=== PATIENT | female | born 1965 | race Caucasian/White ===

== ENCOUNTER 2017-04-17 10:14 | Emergency (ER) | payer OTHER, MEDICAID ==
[2017-04-17 10:20] VITALS: BP 142/62; PULSE 94; RESP 18; TEMP 98; O2SAT 97
[2017-04-17] MEDS ORDERED: predniSONE 20 MG TAB PO ONE (10:29)
[2017-04-17] MEDS ORDERED: IPRATROPIUM/ALBUTEROL 3 ML DEYVIAL IH ONE (10:29)
--- NOTE | 2017-04-17 10:32 | EDPHY ---
H & P Time Seen by Provider: 04/17/17 10:17 HPI/ROS: CHIEF COMPLAINT: Cough and wheezing HISTORY OF PRESENT ILLNESS: Patient has long history of asthma gets worse when she gets bad allergies. Currently it is allergy season and she has bit of a sore throat and itchy eyes and a runny nose along with coughing and wheezing and worsening chest tightness and shortness of breath over the last 3 days. Not helped by her Ventolin inhaler. Currently also using inhaled Flonase and Advair. Does not have fever or hemoptysis or leg swelling. No recent travel or immobilization. Symptoms are moderate and worse with exertion. REVIEW OF SYSTEMS: Eye: no change in vision ENT: Mild sore throat but no lip or tongue swelling. Cardiac: no chest pain or syncope Pulmonary: HPI Abdomen: no vomiting, diarrhea, abdominal pain Musculoskeletal: no back pain Skin: no rash Neuro: no headache Constitutional: no fever : no urinary symptoms A comprehensive 10 point review of systems is otherwise negative aside from elements mentioned in the history of present illness. PAST MEDICAL HISTORY: Includes cardiomyopathy, asthma, depression Social history: Nonsmoker General Appearance: Alert and conversant, cooperative. Eyes: No scleral icterus. ENT, Mouth: Normal mucous membranes. No angioedema, uvula midline and normal. Respiratory: Slight bilateral end-expiratory wheezing, but does speak in full sentences. No focal lung sounds. Cardiovascular: Regular rate and rhythm. Gastrointestinal: Abdomen is soft and non tender. Neurological: Alert and oriented x3. Normally conversant. Face symmetric, normal movement and sensation in all extremities. Skin: Warm and dry, no rashes. No urticaria. Musculoskeletal: No calf tenderness. Psychiatric: Not agitated. Emergency Department course/MDM: Patient presents with symptoms she says are identical to previous asthma exacerbations. Clinically this appears to be the case. DuoNeb and prednisone burst for the next week. Prednisone discussed and consented, she has had it prescribed in the past. I think that CHF or pulmonary embolism or pneumonia are all unlikely. Smoking Status: Never smoked Constitutional: Initial Vital Signs Temperature (C) 36.6 C 04/17/17 10:18 Heart Rate 94 04/17/17 10:18 Respiratory Rate 18 04/17/17 10:18 Blood Pressure 142/62 H 04/17/17 10:18 O2 Sat (%) 97 04/17/17 10:18 O2 Delivery Mode Room Air Allergies/Adverse Reactions: Penicillins Allergy (Unknown, Verified 01/05/15 13:55) Anaphylaxis Home Medications: Medication Instructions Recorded Albuterol [Proventil Inhaler HFA 1 - 2 puffs IH Q4 PRN 08/18/12 (*)] Carvedilol [Coreg (*)] 3.125 mg PO BIDMEAL 08/18/12 Digoxin [Lanoxin 0.125 mg] 0.125 mg PO HS 08/18/12 Gabapentin [Neurontin 100 MG (*)] 100 mg PO DAILY 08/18/12 OXcarbazepine [Trileptal 300mg (*)] 600 mg PO BID 08/18/12 ARIPiprazole [Abilify 10 mg (*)] 10 mg PO HS 03/22/14 Furosemide [Lasix 40 MG (*)] 10 - 40 mg PO DAILY PRN 03/22/14 Methylphenidate HCl 30 mg PO DAILY06 03/22/14 [Methylphenidate LA] buPROPion SR [Wellbutrin 150mg SR 150 mg PO DAILY 03/22/14 (*)] buPROPion XL [Wellbutrin 150mg XL] 450 mg PO DAILY 03/22/14 Enalapril Maleate 02/13/16 predniSONE [prednisone 20mg (RX)] 20 mg PO Q12 #15 tab 04/17/17 MDM/Departure - [facility] Medications Given: Discontinued Medications Albuterol/Ipratropium (Duoneb) 3 ml IH EDNOW ONE Stop: 04/17/17 10:30 Last Admin: 04/17/17 10:42 Dose: 3 ml Prednisone (Prednisone) 60 mg PO EDNOW ONE Stop: 04/17/17 10:30 Last Admin: 04/17/17 10:41 Dose: 60 mg - Depart Disposition: Home, Routine, Self-Care Clinical Impression: Exacerbation of asthma Condition: Good Instructions: Asthma (ED) Prescriptions: predniSONE [prednisone 20mg (RX)] 20 mg PO Q12 #15 tab Referrals: Mari Adrian MD [Primary Care Provider] - As per Instructions
== END 2017-04-17 11:14 | disposition home or self-care (01) ==
LOC: CED 10:14
DX: J45.901 Unspecified asthma with (acute) exacerbation (principal)

== ENCOUNTER 2017-04-22 17:50 | Emergency (ER) | payer OTHER, MEDICAID ==
[2017-04-22] MEDS ORDERED: IPRATROPIUM/ALBUTEROL 3 ML DEYVIAL ONE (18:09)
[2017-04-22] MEDS ORDERED: IPRATROPIUM/ALBUTEROL 3 ML DEYVIAL IH ONE (18:12)
[2017-04-22] MEDS ORDERED: predniSONE 20 MG TAB PO ONE (18:47)
--- NOTE | 2017-04-22 19:03 | EDPHY ---
H & P Time Seen by Provider: 04/22/17 18:10 HPI/ROS: This patient presents with recurrent asthma exacerbations symptoms. She explains that she was seen on April [address] Hyman for asthma exacerbation and started on prednisone 20 mg twice a day. She has been compliant with this treatment plan but reports that she improved for 4 days or so but over the past 2-3 days this had again increase in her wheezing despite frequent use of her albuterol every 2 hours. She has not been using a spacer with her albuterol. She notes no new symptoms besides her seasonal allergies which are typically the trigger for her asthma exacerbations. She states that her current dyspnea is [id number]. ROS: No fevers or chills. HEENT: She complains of onset of thrush in association with Flonase use over the past 2 days and requests nystatin Pulmonary: No pleuritic pain. No significant coughing. No respiratory distress cardiovascular: No heart palpitations. No chest pain. No calf swelling or pain. GI: No nausea vomiting or belly pain. Integumentary: No skin rash 7 point ROS is otherwise negative Smoking Status: Never smoked Physical Exam: Physical Exam Vital signs are normal. General: No acute distress HEENT: Nose: Clear discharge bilaterally. No sinus tenderness to percussion. Ears: External canals and tympanic membranes are clear with no erythema or abnormal findings bilaterally. Oropharynx: No erythema or exudates. No dysphonia. No drooling or stridor. Tongue: Patient has white plaques consistent with oral thrush Eyes: Pupils equal and react to light. Extraocular motions are intact. Neck: Supple with no meningismus. No lymphadenopathy Lungs: Clear to auscultation bilaterally with no rales, rhonchi or wheeze. However, with deep breath or cough she has mild expiratory wheeze.No respiratory distress. Cardiac: Regular rate and rhythm with no murmur gallop or rub. No leg swelling or tenderness. Skin: No rash or pallor. Neuro: Alert with no focal deficits noted. Initial differential diagnosis: URI with asthma, seasonal allergies with asthma exacerbation, doubt bronchitis or pneumonia, thrush Constitutional: Initial Vital Signs Temperature (C) 37.0 C 04/22/17 18:04 Heart Rate 101 H 04/22/17 18:04 Respiratory Rate 24 H 04/22/17 18:04 Blood Pressure 180/112 H 04/22/17 18:04 O2 Sat (%) 95 04/22/17 18:04 O2 Delivery Mode Room Air Allergies/Adverse Reactions: Penicillins Allergy (Unknown, Verified 04/22/17 18:03) Anaphylaxis Home Medications: Medication Instructions Recorded Albuterol [Proventil Inhaler HFA 1 - 2 puffs IH Q4 PRN 08/18/12 (*)] Carvedilol [Coreg (*)] 3.125 mg PO BIDMEAL 08/18/12 Digoxin [Lanoxin 0.125 mg] 0.125 mg PO HS 08/18/12 Gabapentin [Neurontin 100 MG (*)] 100 mg PO DAILY 08/18/12 OXcarbazepine [Trileptal 300mg (*)] 600 mg PO BID 08/18/12 ARIPiprazole [Abilify 10 mg (*)] 10 mg PO HS 03/22/14 Furosemide [Lasix 40 MG (*)] 10 - 40 mg PO DAILY PRN 03/22/14 Methylphenidate HCl 30 mg PO DAILY06 03/22/14 [Methylphenidate LA] buPROPion SR [Wellbutrin 150mg SR 150 mg PO DAILY 03/22/14 (*)] buPROPion XL [Wellbutrin 150mg XL] 450 mg PO DAILY 03/22/14 Enalapril Maleate 02/13/16 predniSONE [prednisone 20mg (RX)] 20 mg PO Q12 #15 tab 04/17/17 Albuterol Hfa Anes Only [Proair 2 puffs IH Q4 PRN #1 mdi 04/22/17 Hfa Icu (*)] Fluticasone Hfa 220 Mcg [Flovent 2 puffs IH DAILY #1 mdi 04/22/17 220 MCG Hfa MDI (*)] Nystatin Susp [Mycostatin Oral 6 ml PO QID #200 ml 04/22/17 Liquid] predniSONE 60 mg PO DAILY #17 tab 04/22/17 MDM/Departure - MDM Medications Given: Discontinued Medications Albuterol/Ipratropium (Duoneb) 3 ml IH EDNOW ONE Stop: 04/22/17 18:13 Last Admin: 04/22/17 18:17 Dose: 3 ml Prednisone (Prednisone) 40 mg PO EDNOW ONE Stop: 04/22/17 18:48 Last Admin: 04/22/17 18:53 Dose: 40 mg ED Course/Re-evaluation: initial peak flow is low at 300 DuoNeb with increased aeration, decreased wheeze and subjective improvement Additional 40 mg of prednisone administered discussion: Will increase this patient's Prednisone dose to 6 mg a day for the next 4 days and then taper down with the addition of Flovent.. Flonase. Will treat her oral thrush with nystatin. Discussion: Mild asthma exacerbation improved treat without evidence of complicating factors. - Depart Disposition: Home, Routine, Self-Care Clinical Impression: Asthma exacerbation, Thrush Condition: Good Instructions: Asthma (ED), Oral Candidiasis (ED) Additional Instructions: Diagnoses: 1. Asthma exacerbation 2. Oral thrush Plan: Humidifier Albuterol inhaler with spacer as needed for cough wheeze or shortness of breath Increased prednisone dose to 60 mg a day as directed in the prescription Start Flovent steroid inhaler. Stop Flonase steroid inhaler Be sure to rinse and spit with water after use the Flovent to help prevent thrush. Call your primary physician to arrange follow-up appointment for recheck and 2 -5 days. Return for any significant worsening despite the treatment plan. Prescriptions: Albuterol Hfa Anes Only [Proair Hfa Icu (*)] 2 puffs IH Q4 PRN #1 mdi PRN Reason: Wheezing Fluticasone Hfa 220 Mcg [Flovent 220 MCG Hfa MDI (*)] 2 puffs IH DAILY #1 mdi Nystatin Susp [Mycostatin Oral Liquid] 6 ml PO QID #200 ml predniSONE 60 mg PO DAILY #17 tab Referrals: Mari Adrian MD [Primary Care Provider] - As per Instructions
[2017-04-22 19:18] VITALS: PULSE 82; TEMP 98.2
[2017-04-22 19:19] VITALS: BP 176/93; RESP 20; O2SAT 96
== END 2017-04-22 19:24 | disposition home or self-care (01) ==
LOC: CED 17:50
DX: J45.901 Unspecified asthma with (acute) exacerbation (principal); B37.9 Candidiasis, unspecified

== ENCOUNTER 2017-04-29 03:40 | Emergency (ER) | payer OTHER, MEDICAID ==
[2017-04-29] MEDS ORDERED: LIDOCAINE HCL 4% TOPICAL SOLN 50ML ONE (03:49)
[2017-04-29] MEDS ORDERED: LIDOCAINE 2% 5 ML SDV ONE (03:49)
[2017-04-29] MEDS ORDERED: LIDOCAINE 4% 5 ML AMP IH ONE (03:55)
[2017-04-29 03:59] VITALS: TEMP 97.7
[2017-04-29] MEDS ORDERED: BENZONATATE 100 MG CAP PO ONE (04:02)
--- NOTE | 2017-04-29 04:04 | EDPHY ---
H & P Stated Complaint: Asthmatic, not improvong with nebulizers. Time Seen by Provider: 04/29/17 03:55 HPI/ROS: CHIEF COMPLAINT: difficulty breathing, cannot stop coughing HISTORY OF PRESENT ILLNESS: this is a 51-year-old female who is now on her 3rd visit here to this clinic. She notes that on her 1st visit she was placed on prednisone. However cough and been persistent that she had a 2nd visit. At the 2nd visit they noted that she did have thrush and she has been on nystatin swish and spit since that time. She did not require chest x-ray. Despite the prednisone her cough is persisting. In fact tonight she cannot get any rest, she feels exhausted, the cough is recalcitrant and is keeping her awake. She has tried a nebulizer at home as well as her inhaler throughout the day and has had minimal to no relief. While she is little clammy on arrival she notes that only started on the way out here to the hospital. Vis-a-vis she did not have any elements of fevers chills or rigors or shaking chills earlier whatsoever. Charts reviewed from April 17 as well as the . She was noted to have some end-expiratory wheezes in the 1st state but actually good exchange on the 2nd date. Furthermore, on the 2nd visit she was found to have thrush with white patches on her tongue. Old laboratory studies reviewed noting a significant anemia in the setting of a background mild anemia in January of this year with a hemoglobin 8.8. Her indices run chronically low, and continue to do so. I have reviewed the patient her clinical history of , nonischemic cardiomyopathy. She notes that her ejection fraction in 1999 was 20% but most recently was 48%. Back in today she stepped peripheral edema with the presentation in 1999 of course fortunately there has been any of late. She does believe that she has had quite a trigger of her seasonal allergies. She cannot recall specifically what is in the environment though was worried about her CT. She has a CT for which she has been tested positive before and of course with the recent heat into the cat has been shaking more. She does go after things in the environment with vacuum nonetheless. She has not noted any peripheral edema. No orthopnea. No risk factors for PE/DVT. No recent leg swelling. REVIEW OF SYSTEMS: Constitutional: No fever, no chills. Eyes: No discharge ENT: The tongue symptoms are improving with the nystatin Cardiovascular: No chest pain, no palpitations. Respiratory: Recalcitrant, frequent cough. It is particularly worse in the last day. It is now to the point where there has been some post tussive emesis and as such is causing shortness of breath because she cannot stop coughing to the point where she is able to breathe. She is beginning to get some intercostal muscle discomfort and subxiphoid discomfort she attributes to the diaphragm. Gastrointestinal: No nausea vomiting or diarrhea. No abdominal pain. Genitourinary: No hematuria or frequency. Musculoskeletal: No back pain. Skin: No rashes. Neurological: No headache. 10 point ROS otherwise negative Source: Patient Exam Limitations: Clinical condition - Personal History LMP (Females 10-55): Post Menopausal Current Tetanus/Diphtheria Vaccine: Unsure Current Tetanus Diphtheria and Acellular Pertussis (TDAP): Unsure Tetanus Vaccine Date: WITHIN 5 YEARS - Medical/Surgical History Hx Asthma: Yes Hx Chronic Respiratory Disease: No Hx Diabetes: No Hx Cardiac Disease: Yes Hx Renal Disease: No Hx Cirrhosis: No Hx Alcoholism: No Hx HIV/AIDS: No Hx Splenectomy or Spleen Trauma: No Other PMH: DEPRESSION, CARDIAC (post maternal myopathy)ISSUES. Asthma, ADD, environmental allergies. - Family History Significant Family History: Asthma - Social History Smoking Status: Never smoked Alcohol Use: None Drug Use: None - Physical Exam Exam: General Appearance: Alert, mod distress, coughing mid sentence with a throaty sounding cough as well as diaphoresis. Afebrile. Normal phonation. Eyes: Pupils equal and round no pallor or injection. No icterus ENT, Mouth: Mucous membranes moist. Pharynx without erythema or exudate. TM Clear. Neck: No adenopathy. Supple. No JVD. Trachea in midline. Respiratory: Overall there is adequate air exchange. Breath sounds are heard with minimal wheezes. She is unable to take a full complete breath as when she does so she begins to cough and triggers another cough Cardiovascular: Regular rate and rhythm, no murmur. Abdomen: Soft and nontender, no masses, bowel sounds normal. Neurological: Ox3. No motor weakness. Sensation intact. Gait nl. Skin: Warm and dry, no rashes. Musculoskeletal: No joint swelling. Extremities: No pitting edema. Homans sign negative. No cords. Psychiatric: Normal affect. Patient is oriented X 3, there is no agitation that I can see though - she does report increased agitation and short fuse while being on the prednisone Constitutional: Initial Vital Signs Temperature (C) 36.5 C 04/29/17 03:57 Heart Rate 133 H 04/29/17 03:57 Respiratory Rate 24 H 04/29/17 03:57 Blood Pressure 217/106 H 04/29/17 03:57 O2 Sat (%) 99 04/29/17 03:57 O2 Delivery Mode Room Air Allergies/Adverse Reactions: Penicillins Allergy (Unknown, Verified 04/29/17 03:59) Anaphylaxis Home Medications: Medication Instructions Recorded Albuterol [Proventil Inhaler HFA 1 - 2 puffs IH Q4 PRN 08/18/12 (*)] Carvedilol [Coreg (*)] 3.125 mg PO BIDMEAL 08/18/12 Digoxin [Lanoxin 0.125 mg] 0.125 mg PO HS 08/18/12 Gabapentin [Neurontin 100 MG (*)] 100 mg PO DAILY 08/18/12 OXcarbazepine [Trileptal 300mg (*)] 600 mg PO BID 08/18/12 ARIPiprazole [Abilify 10 mg (*)] 10 mg PO HS 03/22/14 Furosemide [Lasix 40 MG (*)] 10 - 40 mg PO DAILY PRN 03/22/14 Methylphenidate HCl 30 mg PO DAILY06 03/22/14 [Methylphenidate LA] buPROPion SR [Wellbutrin 150mg SR 150 mg PO DAILY 03/22/14 (*)] buPROPion XL [Wellbutrin 150mg XL] 450 mg PO DAILY 03/22/14 Enalapril Maleate 02/13/16 predniSONE [prednisone 20mg (RX)] 20 mg PO Q12 #15 tab 04/17/17 Albuterol Hfa Anes Only [Proair 2 puffs IH Q4 PRN #1 mdi 04/22/17 Hfa Icu (*)] Fluticasone Hfa 220 Mcg [Flovent 2 puffs IH DAILY #1 mdi 04/22/17 220 MCG Hfa MDI (*)] Nystatin Susp [Mycostatin Oral 6 ml PO QID #200 ml 04/22/17 Liquid] predniSONE 60 mg PO DAILY #17 tab 04/22/17 Benzonatate 200 mg PO TID PRN #28 capsule 04/29/17 Medical Decision Making - Diagnostics EKG Interpretation: CC interpretation trace master Normal sinus rhythm. Borderline tachycardic at 99. Mild ST segment depressions V4 through V6 which are unchanged from 2014. QTC is 442. Imaging Results: Chest x-ray: Two view chest. Interpreted by me contemporaneously. Films reviewed by me on the PACS system. Normal mediastinum, though cardiac silhouette is enlarged.. Normal lung guerrero. No effusions. Cardiomegaly with implanted defibrillator present. No acute changes ED Course/Re-evaluation: Upon presentation she was given a stat neb of 3 cc of 4% lidocaine. This markedly helped suppress the cough and SOB. WIth this it became further evident that there is minimial if any wheeze. She remained diaphoretic, somewhat, thus was given a cold cloth. We at that time discussed undergoing a more extensive workup to include cardiac screening due to underlying history of cardiomyopathy with low ejection of fraction of 48% as a potential confounder. Thus labs were ordered for electrolytes, troponin, CBC, as well as BNP and chest x-ray. Upon old chart review of I was able to find that in fact she had a notable dropper he H&H from 11 down to 8.8 this past January compared to earlier in the year. Laboratory review shows: normalization to her baseline a hemoglobin of 11.1. However her creatinine is now 1.2 compared to 0.7 approximately 1 year ago. The BNP of 1140 does not have any old values to compare to. BUN is 38 with a creatinine 1.2 showing prerenal insufficiency, thereby we discussed hydration Marked elevation of the white count is reflective of the steroid use Differential Diagnosis: Differential Includes but is not limited to: Pneumonia, bronchitis, acute asthma, asthmatic bronchitis, Influenza, pharyngitis, ACS, myocardial infarction, pneumothorax, pleurisy, pulmonary embolus, anxiety, muscle strain. - Data Points Laboratory Results: Laboratory Results 04/29/17 04:34 04/29/17 04:34 Medications Given: Discontinued Medications Benzonatate (Tessalon Pearles) 200 mg PO EDNOW ONE Stop: 04/29/17 04:03 Last Admin: 04/29/17 04:10 Dose: 200 mg Lidocaine HCl (Lidocaine Hcl 4%) 120 mg EDNOW ONE Stop: 04/29/17 03:56 Last Admin: 04/29/17 03:55 Dose: 120 mg Departure - Departure Disposition: Home, Routine, Self-Care Clinical Impression: Acute bronchitis Qualifiers: Bronchitis organism: unspecified organism Qualified Code(s): J20.9 - Acute bronchitis, unspecified Seasonal allergic reaction Qualifiers: Chronicity: unspecified Allergic rhinitis trigger: unspecified Qualified Code(s ): J30.2 - Other seasonal allergic rhinitis Condition: Good Instructions: Allergic Rhinitis (ED) Additional Instructions: Continue current medications Add benzonatate as a cough suppressant Finish the prednisone Your anemia has improved back to baseline, however I do recommend that he consult her family physician regarding that drop in January Further, he over laboratory numbers show a fair amount of dehydration. You should take extra fluids in particular over the next week Referrals: Patient,NotPresent [Primary Care Provider] - As per Instructions Prescriptions: Benzonatate 200 mg PO TID PRN #28 capsule PRN Reason: Cough, Moderate
[2017-04-29 04:42] LABS: ADD DIFF? YES; ADD MORPH? YES; ADD SCAN? NO; ATYPICAL LYMPHOCYTE FLAG 0 (0-99); FRAGMENT RBC FLAG 20 (0-99); HEMATOCRIT 37.8 % (38.0-47.0); HEMOGLOBIN 11.1 g/dL (12.6-16.3); LEFT SHIFT FLG 20 (0-99); LIPEMIA HEMOLYSIS FLAG 70 (0-99); MEAN CELL HEMOGLOBIN 19.6 pg (27.9-34.1); MEAN CELL HEMOGLOBIN CONCENTR. 29.4 g/dL (32.4-36.7); MEAN PLATELET VOLUME 8.8 fL (8.7-11.7); PLATELET CLUMPS FLAG 0 (0-99); PLATELET COUNT 626 10^3/uL (150-400); RED BLOOD CELL COUNT 5.65 10^6/uL (4.18-5.33)
[2017-04-29 04:43] LABS: MEAN CELL VOLUME 66.9 fL (81.5-99.8)
--- NOTE | 2017-04-29 04:49 | CPEKG ---
Heart Rate: 99 RR Interval: 606 P-R Interval: 140 QRSD Interval: 96 QT Interval: 344 QTC Interval: 442 P Pender: 49 QRS Pender: 11 T Wave Pender: 45 EKG Severity - ABNORMAL ECG - EKG Impression: SINUS RHYTHM EKG Impression: PROBABLE LEFT VENTRICULAR HYPERTROPHY EKG Impression: ST/T WAVE CHANGES LIKELY SECONDARY TO [facility] MORPHOLOGY Electronically Signed By: Wilder Wayne 30-Apr-2017 09:52:43
[2017-04-29 04:56] LABS: CALCIUM 10.8 mg/dL (8.5-10.4); CREATININE 1.2 mg/dL (0.6-1.0); MAGNESIUM 2.5 mg/dL (1.6-2.3); POTASSIUM 4.1 mEq/L (3.5-5.2)
[2017-04-29 04:58] LABS: PLATELET ESTIMATE INCREASED (ADEQ)
[2017-04-29 04:59] LABS: HYPOCHROMIA 1+; MACROCYTES 1+; MICROCYTES 1+
[2017-04-29 05:09] LABS: TROPONIN I 0.023 ng/mL (0-0.034)
[2017-04-29 05:11] VITALS: RESP 18
[2017-04-29 05:57] VITALS: BP 203/127; PULSE 93; O2SAT 96
== END 2017-04-29 06:05 | disposition home or self-care (01) ==
LOC: CED 03:40
DX: J20.9 Acute bronchitis, unspecified (principal); J30.2 Other seasonal allergic rhinitis
CPT/HCPCS: 71020-PO; 80048-PO; 83735-PO; 83880-PO; 84100-PO; 84484-PO; 85025-PO

== ENCOUNTER 2017-11-02 09:58 | Emergency (ER) | payer OTHER, MEDICAID ==
--- NOTE | 2017-11-02 10:14 | EDPHY ---
H & P - Personal History Tetanus Vaccine Date: WITHIN 5 YEARS - Medical/Surgical History Hx Asthma: Yes Hx Chronic Respiratory Disease: No Hx Diabetes: No Hx Cardiac Disease: Yes Hx Renal Disease: No Hx Cirrhosis: No Hx Alcoholism: No Hx HIV/AIDS: No Hx Splenectomy or Spleen Trauma: No Other PMH: DEPRESSION, CARDIAC (post maternal myopathy)ISSUES. Asthma, ADD, environmental allergies. - Social History Smoking Status: Never smoked Constitutional: Initial Vital Signs Temperature (C) 36.9 C 11/02/17 10:12 Heart Rate 110 H 11/02/17 10:12 Respiratory Rate 16 11/02/17 10:12 Blood Pressure 197/116 H 11/02/17 10:12 O2 Sat (%) 97 11/02/17 10:12 O2 Delivery Mode Room Air Allergies/Adverse Reactions: Penicillins Allergy (Unknown, Verified 11/02/17 10:08) Anaphylaxis Home Medications: Medication Instructions Recorded Carvedilol [Coreg (*)] 3.125 mg PO BIDMEAL 08/18/12 Digoxin [Lanoxin 0.125 mg] 0.125 mg PO HS 08/18/12 Gabapentin [Neurontin 100 MG (*)] 100 mg PO DAILY 08/18/12 ARIPiprazole [Abilify 10 mg (*)] 10 mg PO HS 03/22/14 Furosemide [Lasix 40 MG (*)] 10 - 40 mg PO DAILY PRN 03/22/14 Methylphenidate HCl 30 mg PO DAILY06 03/22/14 [Methylphenidate LA] buPROPion SR [Wellbutrin 150mg SR 150 mg PO DAILY 03/22/14 (*)] buPROPion XL [Wellbutrin 150mg XL] 450 mg PO DAILY 03/22/14 Enalapril Maleate 02/13/16 Albuterol Hfa Anes Only [Proair 2 puffs IH Q4 PRN #1 mdi 04/22/17 Hfa Icu (*)] Fluticasone Hfa 220 Mcg [Flovent 2 puffs IH DAILY #1 mdi 04/22/17 220 MCG Hfa MDI (*)] Medical Decision Making ED Course/Re-evaluation: CHIEF COMPLAINT: Left hand pain HISTORY OF PRESENT ILLNESS: This 52-year-old female slipped on the ice and broke her fall with her left palm on the thumb side mostly 2 nights ago. She came in the emergency department today because she is having continued pain at the base of her thumb where it meets her wrist in addition to significant bruising. It hurts her to move it but she is able to move the wrist. And she can move and wiggle her fingers and make a fist. She is concerned about a fracture. She denies any other injuries. She does not use alcohol or drugs and this was a pure mechanical fall. REVIEW OF SYSTEMS: A 10 point review of systems was performed and is negative with the exception of the elements mentioned in the history of present illness. PHYSICAL EXAM: HR, BP, O2 Sat, RR. Temp noted - this patient does have slightly high blood pressure in the emergency department and slightly high heart rate General Appearance: Alert, well hydrated, appropriate, and non-toxic appearing. Head: Atraumatic without scalp tenderness or obvious injury Eyes: Pupils equal, round, reactive to light and accommodation, no trauma. Nose: Atraumatic, no rhinorrhea, clear. Neck: Supple, no trauma Cardiovascular: Regular rate and rhythm, no murmurs, rubs, or gallops. Bilateral carotid, radial, dorsalis pedis, and posterior tibial pulses intact. Good capillary refill all extremities. Musculoskeletal: Significant bruising at the base of the patient's thenar eminence and wrist on the left. Some reasonable range of motion of both the wrist and all of the finger joints but some pain with range of motion at the wrist. Pain on axial thumb load. Pain on palpation of anatomical snuffbox. Otherwise, Normal active ROM of all extremities, atraumatic. Neurological: Alert, appropriate, and interactive. Normal neurologic exam on the injured extremity Skin: No rashes, good turgor, no nodules on palpation, no lacerations or trauma. Past medical history: Cardiomyopathy resolving with meds, hypertension, psychiatric disorder, asthma Past surgical history: Noncontributory Family history: Noncontributory Social history: Single, does not use tobacco drugs or alcohol, employed DIAGNOSTICS/PROCEDURES/CRITICAL CARE TIME: Study: Four views of the left wrist including scaphoid Indication: Trauma Results: After viewing the images myself on the PACS system. My interpretation of the images is: no acute process. The radiologist interpretation is pending at the time of this dictation. Procedure: Fracture treatment. The patient had x-rays taken and I confirmed that the patient does not have a fracture. I am concerned about an occult scaphoid fracture however. I do not believe that the patient requires immediate orthopedic consultation, nor do I believe that reduction at a later date will be required. Velcro thumb spica splint was applied. After application of the splint, I returned and re-examined the patient. The splint was adequately immobilizing the joint and distal to the splint the patient's circulation and sensation was intact. DIFFERENTIAL DIAGNOSIS: Includes but is not limited to: Fracture, sprain, dislocation, laceration, contusion MEDICAL DECISION MAKING: This patient has significant bruising especially on the volar aspect of her wrist just at the base of the thenar eminence. She also has pain with axial thumb loading and pain in the anatomical snuffbox. I cannot find fracture on the x-ray however I am concerned about either a significant bony contusion or an occult scaphoid injury. I have put this patient in a Velcro thumb spica splint in order to protect her against the potential occult scaphoid injury. She will use ibuprofen. She will follow up with hand specialist for re-evaluation. - Data Points Medications Given: Discontinued Medications Ibuprofen (Motrin) 600 mg PO EDNOW ONE Stop: 11/02/17 10:21 Last Admin: 11/02/17 10:46 Dose: 600 mg Departure - Departure Disposition: Home, Routine, Self-Care Clinical Impression: Contusion of wrist, left Qualifiers: Encounter type: initial encounter Qualified Code(s): S60.212A - Contusion of left wrist, initial encounter Condition: Good Instructions: Wrist Injury (ED), Wrist Sprain (ED) Additional Instructions: You may take your splint off to shower but otherwise leave it on until you see Dr. River in 5-7 days. Referrals: Mari Adrian MD [Primary Care Provider] - As per Instructions Dorita River MD [Medical Doctor] - 5-7 days, call for appt.
[2017-11-02 10:17] VITALS: PULSE 110; TEMP 98.4
[2017-11-02] MEDS ORDERED: IBUPROFEN 200 MG TAB PO ONE (10:20)
[2017-11-02 11:34] VITALS: BP 209/123; RESP 18; O2SAT 96
== END 2017-11-02 11:34 | disposition home or self-care (01) ==
LOC: CED 09:58
DX: S60.212A Contusion of left wrist, initial encounter (principal); J45.909 Unspecified asthma, uncomplicated; I10 Essential (primary) hypertension; W00.0XXA Fall on same level due to ice and snow, initial encounter
CPT/HCPCS: 73110-PO

== ENCOUNTER 2018-05-29 00:06 | Emergency (ER) | payer OTHER ==
[2018-05-29] MEDS ORDERED: IPRATROPIUM/ALBUTEROL 3 ML DEYVIAL ONE (00:16)
[2018-05-29] MEDS ORDERED: MAGNESIUM SULF 2 GM/WATER 50 ML IV ONE (00:18)
[2018-05-29] MEDS ORDERED: NS 1,000 ML IV ONE (00:18)
[2018-05-29] MEDS ORDERED: IPRATROPIUM/ALBUTEROL 3 ML DEYVIAL IH ONE (00:18)
--- NOTE | 2018-05-29 00:23 | EDPHY ---
H & P Stated Complaint: Asthma attack Time Seen by Provider: 05/29/18 00:14 HPI/ROS: Chief complaint: Asthma attack History of present illness: This is a 52-year-old female who presents to the emergency department for an asthma exacerbation. Patient reports she has had increase in trouble breathing over the last few days secondary to allergies. She has seen her primary care doctor. In addition to using her inhaler she is using home nebulizer, her primary care doctor started her on prednisone, this is day 4 of 60 mg daily and she has started Singulair. Despite this she continues to have trouble breathing. She states her most concerning symptom is a persistent cough. She cannot stop coughing. She feels mildly short of breath. She has had asthma exacerbations in the past where she has had to go to the emergency room, this feels similar. She has never been hospitalized or needed advanced airway management. Review of systems: A 10 point review of systems was obtained and other than described above was negative - Personal History Current Tetanus/Diphtheria Vaccine: Yes Current Tetanus Diphtheria and Acellular Pertussis (TDAP): Yes Tetanus Vaccine Date: WITHIN 5 YEARS - Medical/Surgical History Hx Asthma: Yes Hx Chronic Respiratory Disease: No Hx Diabetes: No Hx Cardiac Disease: Yes Hx Renal Disease: No Hx Cirrhosis: No Hx Alcoholism: No Hx HIV/AIDS: No Hx Splenectomy or Spleen Trauma: No Other PMH: DEPRESSION, CARDIAC (post maternal myopathy)ISSUES. Asthma, ADD, environmental allergies. - Social History Smoking Status: Never smoked - Physical Exam Exam: General Appearance: Alert, nontoxic. Eyes: Pupils equal and round no pallor or injection. ENT, Mouth: Mucous membranes moist. Respiratory: Patient is talking in full sentences. She has a persistent dry cough. Mild expiratory wheezes noted throughout the lung guerrero. No rhonchi or rales. Cardiovascular: Regular rate and rhythm. Gastrointestinal: Abdomen is soft and non tender, no masses, bowel sounds normal. Neurological: Alert and oriented x4. Strength and sensation intact and symmetrical. Skin: Warm and dry, no rashes. Musculoskeletal: Neck is supple non tender. Extremities are symmetrical, full range of motion. Psychiatric: Patient is oriented X 3, there is no agitation. Constitutional: Initial Vital Signs Temperature (C) 37.0 C 05/29/18 00:09 Heart Rate 128 H 05/29/18 00:09 Respiratory Rate 18 05/29/18 00:09 Blood Pressure 207/136 H 05/29/18 00:09 O2 Sat (%) 99 05/29/18 00:09 O2 Delivery Mode Room Air Allergies/Adverse Reactions: Penicillins Allergy (Unknown, Verified 11/02/17 10:08) Anaphylaxis Home Medications: Medication Instructions Recorded Carvedilol [Coreg (*)] 3.125 mg PO BIDMEAL 08/18/12 Digoxin [Lanoxin 0.125 mg] 0.125 mg PO HS 08/18/12 Gabapentin [Neurontin 100 MG (*)] 100 mg PO DAILY 08/18/12 ARIPiprazole [Abilify 10 mg (*)] 10 mg PO HS 03/22/14 Furosemide [Lasix 40 MG (*)] 10 - 40 mg PO DAILY PRN 03/22/14 Methylphenidate HCl 30 mg PO DAILY06 03/22/14 [Methylphenidate LA] buPROPion SR [Wellbutrin 150mg SR 150 mg PO DAILY 03/22/14 (*)] buPROPion XL [Wellbutrin 150mg XL] 450 mg PO DAILY 03/22/14 Enalapril Maleate 02/13/16 Albuterol Hfa Anes Only [Proair 2 puffs IH Q4 PRN #1 mdi 04/22/17 Hfa Icu (*)] Medical Decision Making - Diagnostics Imaging Results: Imaging Impressions Chest X-Ray 05/29/18 00:19 Impression: Nothing acute identified. Imaging: I viewed and interpreted images myself ED Course/Re-evaluation: Patient is discussed with my secondary supervising physician Dr. Joaquim Rodrigues. Patient presents to the emergency department for persistent coughing consistent with an asthma exacerbation. She is nontoxic. She has already been using her albuterol inhaler and nebulizer at home and is on prednisone and Singulair from her PCP. I have given her a DuoNeb and a continuous neb here in the emergency room as well as fluid and magnesium. On re-evaluation her coughing has ceased. Lung sounds are clear. She states she is feeling much better. I have discussed admission, she is comfortable going home. Home care is discussed. She is asked to follow up with her primary care doctor on Thursday for recheck without fail. Strict return precautions are given. Differential Diagnosis: Included but not limited to asthma exacerbation, status asthmaticus, pulmonary infections - Data Points Medications Given: Discontinued Medications Albuterol/Ipratropium (Duoneb) 3 ml IH EDNOW ONE Stop: 05/29/18 00:19 Last Admin: 05/29/18 00:19 Dose: 3 ml Sodium Chloride (Ns) 1,000 mls @ 0 mls/hr IV ONCE ONE; Wide Open PRN Reason: Protocol Stop: 05/29/18 00:19 Last Admin: 05/29/18 00:35 Dose: 1,000 mls Magnesium Sulfate (Magnesium Sulf 2 Gm (Premix)) 50 mls @ 50 mls/hr IV EDNOW ONE Stop: 05/29/18 01:17 Last Admin: 05/29/18 00:35 Dose: 50 mls Departure - Departure Disposition: Home, Routine, Self-Care Clinical Impression: Exacerbation of asthma Qualifiers: Asthma severity: mild Asthma persistence: persistent Qualified Code(s): J45.31 - Mild persistent asthma with (acute) exacerbation Condition: Good Instructions: Asthma (ED) Additional Instructions: Follow-up with your primary care doctor on Thursday for recheck without fail Continue medications as prescribed by your primary care doctor If symptoms worsen or new symptoms develop return to the emergency room for recheck Referrals: Mari Adrian MD [Primary Care Provider] - As per Instructions
[2018-05-29] MEDS ORDERED: ALBUTEROL 3 ML DEYVIAL ONE (00:26)
[2018-05-29 02:13] VITALS: BP 185/94
== END 2018-05-29 02:12 | disposition home or self-care (01) ==
DX: J45.31 Mild persistent asthma with (acute) exacerbation (principal); E86.9 Volume depletion, unspecified
CPT/HCPCS: 71045; 96365; 99284; J3475; J7613

== ENCOUNTER 2018-05-30 19:42 | Emergency (ER) | payer OTHER ==
--- NOTE | 2018-05-30 19:57 | EDPHY ---
H & P Time Seen by Provider: 05/30/18 19:53 HPI/ROS: CHIEF COMPLAINT: AICD fired HISTORY OF PRESENT ILLNESS: Patient is a 52-year-old female with cardiomyopathy status post who has an AICD in place. The patient states that she was taking a shower this evening. When she got out she began to felt lightheaded. She leaned back against the wall. Her AICD then fired. She denies any chest pain or shortness of breath. She has no symptoms at this time. She states that the last time her AICD fired was in 2004. The patient was here on Thursday with an asthma exacerbation. At that time she received a DuoNeb and then an albuterol neb for 1 hr per report. No other stimulant use. No leg pain or swelling. No recent travel. REVIEW OF SYSTEMS: My complete review of systems is negative except as mentioned in the HPI. Past Medical/Surgical History: Includes cardiomyopathy, asthma, ADD allergies Past surgical history: Includes back surgery, generator change Social history: The patient is . She does not smoke. Smoking Status: Never smoked Physical Exam: Vitals noted. Tachycardic at 106. Blood pressure is elevated 218/117. GENERAL: Well-appearing, in no acute distress, alert. HEENT: Eyes normal to inspection, normal pharynx, no signs of dehydration. NECK: No thyromegaly, no lymphadenopathy, supple. RESPIRATORY: Clear to auscultation bilaterally, no rales, rhonchi or wheezing. CVS: Regular rate and rhythm, no rubs, murmurs, or gallops. Chest wall: AICD in place. No warmth or redness. ABDOMEN: Soft, nontender, nondistended, no organomegaly. BACK: Normal to inspection, no CVA tenderness. SKIN: Normal color, no rash, warm, dry. No pallor. EXTREMITIES: No pedal edema, no calf tenderness, no Homans sign or cords, no joint swelling. NEURO/PSYCH: Alert and oriented x3, normal mood and affect, normal motor sensory exam. No obvious cranial nerve deficit. Constitutional: Initial Vital Signs Temperature (C) 37 C 05/30/18 19:47 Heart Rate 106 H 05/30/18 19:47 Respiratory Rate 18 05/30/18 19:47 Blood Pressure 218/117 H 05/30/18 19:47 O2 Sat (%) 95 05/30/18 19:47 O2 Delivery Mode Room Air Allergies/Adverse Reactions: Penicillins Allergy (Unknown, Verified 11/02/17 10:08) Anaphylaxis Home Medications: Medication Instructions Recorded Carvedilol [Coreg (*)] 3.125 mg PO BIDMEAL 08/18/12 Digoxin [Lanoxin 0.125 mg] 0.125 mg PO HS 08/18/12 Gabapentin [Neurontin 100 MG (*)] 100 mg PO DAILY 08/18/12 ARIPiprazole [Abilify 10 mg (*)] 10 mg PO HS 03/22/14 Furosemide [Lasix 40 MG (*)] 10 - 40 mg PO DAILY PRN 03/22/14 Methylphenidate HCl 30 mg PO DAILY06 03/22/14 [Methylphenidate LA] buPROPion SR [Wellbutrin 150mg SR 150 mg PO DAILY 03/22/14 (*)] buPROPion XL [Wellbutrin 150mg XL] 450 mg PO DAILY 03/22/14 Enalapril Maleate 02/13/16 Albuterol Hfa Anes Only [Proair 2 puffs IH Q4 PRN #1 mdi 04/22/17 Hfa Icu (*)] Medical Decision Making - Diagnostics Imaging Results: Imaging Impressions Chest X-Ray 05/30/18 20:17 Impression: 1. No pneumonia or atelectasis. 2. Chronic cardiomegaly without failure. 3. Fluid-filled hiatal hernia. Might the patient's cough the related to reflux? ED Course/Re-evaluation: In the emergency department I discussed possible etiologies with the patient. I answered all her questions. Laboratory studies, EKG and chest x-ray were ordered. I called to have her AICD interrogated. EKG shows normal sinus rhythm, normal rate, normal axis, normal intervals. There are no ST or T-wave abnormalities. EKG is normal as interpreted by me. Patient has elevated white care at 23,000. It is noted the patient has been on prednisone since Thursday. The patient has had episodes of elevated white count in the past. Patient also is mildly anemic with hematocrit 31. The patient has had anemia previously. Patient's potassium was mildly low at 3.1. This was supplemented with 40 mEq potassium chloride. Patient's pacer was interrogated. Of note, tonight she had a run of V-tach for 14 sec and received 1 shock. Patient is also noted to have a run of V-tach on that was paced terminated. I discussed these findings with Dr. Napier from Cardiology. He recommended the patient be discharged home with follow-up. Discussed this with the patient. She felt comfortable this plan. She is given warnings prior to leaving. She will return with worsening symptoms. Differential Diagnosis: My differential includes but is not limited to V-tach, dysrhythmia, AICD malfunction, PE, PA - Data Points Laboratory Results: Laboratory Results 05/30/18 20:00 05/30/18 20:00 05/30/18 05/30/18 05/30/18 20:03 20:00 20:00 WBC RBC Hgb Hct MCV MCH MCHC RDW Plt Count MPV Neut % (Auto) Lymph % (Auto) [place] % (Auto) Eos % (Auto) Baso % (Auto) Nucleat RBC Rel Count Absolute Neuts (auto) Absolute Lymphs (auto) Absolute Monos (auto) Absolute Eos (auto) Absolute Basos (auto) Absolute Nucleated RBC Immature Gran % Immature Gran # RBC/WBC/PLT Morphology Atypical Lymphocytes Platelet Estimate Polychromasia Hypochromasia Microcytic Cells Stomatocytes Smear Review By PT 13.2 SEC SEC (12.0-15.0) INR 0.98 (0.83-1.16) APTT 20.0 SEC L SEC (23.0-38.0) Sodium 143 mEq/L mEq/L (135-145) Potassium 3.1 mEq/L L mEq/L (3.3-5.0) Chloride 107 mEq/L mEq/L (97-110) Carbon Dioxide 24 mEq/l mEq/l (22-31) Anion Gap 12 mEq/L mEq/L (8-16) BUN 18 mg/dL mg/dL (7-23) Creatinine 0.8 mg/dL mg/dL (0.6-1.0) Estimated GFR > 60 Glucose 85 mg/dL mg/dL (70-100) Calcium 9.8 mg/dL mg/dL (8.5-10.4) POC Troponin I 0.01 ng/mL ng/mL (0.00-0.08) 05/30/18 20:00 WBC 23.86 10^3/uL H 10^3/uL (3.80-9.50) RBC 4.78 10^6/uL 10^6/uL (4.18-5.33) Hgb 8.3 g/dL L g/dL (12.6-16.3) Hct 31.1 % L % (38.0-47.0) MCV 65.1 fL L fL (81.5-99.8) MCH 17.4 pg L pg (27.9-34.1) MCHC 26.7 g/dL L g/dL (32.4-36.7) RDW 19.2 % H % (11.5-15.2) Plt Count 675 10^3/uL H 10^3/uL (150-400) MPV 8.5 fL L fL (8.7-11.7) Neut % (Auto) 68.7 % % (39.3-74.2) Lymph % (Auto) 24.1 % % (15.0-45.0) [place] % (Auto) 5.4 % % (4.5-13.0) Eos % (Auto) 0.6 % % (0.6-7.6) Baso % (Auto) 0.3 % % (0.3-1.7) Nucleat RBC Rel Count 0.1 % % (0.0-0.2) Absolute Neuts (auto) 16.39 10^3/uL H 10^3/uL (1.70-6.50) Absolute Lymphs (auto) 5.75 10^3/uL H 10^3/uL (1.00-3.00) Absolute Monos (auto) 1.29 10^3/uL H 10^3/uL (0.30-0.80) Absolute Eos (auto) 0.14 10^3/uL 10^3/uL (0.03-0.40) Absolute Basos (auto) 0.07 10^3/uL 10^3/uL (0.02-0.10) Absolute Nucleated RBC 0.02 10^3/uL H 10^3/uL (0-0.01) Immature Gran % 0.9 % % (0.0-1.1) Immature Gran # 0.21 10^3/uL H 10^3/uL (0.00-0.10) RBC/WBC/PLT Morphology TNP Atypical Lymphocytes 1+ H Platelet Estimate INCREASED H (ADEQ) Polychromasia 1+ H Hypochromasia 1+ H Microcytic Cells 2+ H Stomatocytes 1+ H Smear Review By Pending PT INR APTT Sodium Potassium Chloride Carbon Dioxide Anion Gap BUN Creatinine Estimated GFR Glucose Calcium POC Troponin I Medications Given: Discontinued Medications Sodium Chloride (Ns) 1,000 mls @ 0 mls/hr IV EDNOW ONE; Wide Open PRN Reason: Protocol Stop: 05/30/18 20:01 Last Admin: 05/30/18 20:15 Dose: Not Given Point of Care Test Results: Chemistry 05/30/18 20:03 POC Troponin I 0.01 ng/mL ng/mL (0.00-0.08) Departure - Departure Disposition: Home, Routine, Self-Care Clinical Impression: AICD discharge Condition: Good Instructions: Implantable Cardioverter Defibrillator (DC) Additional Instructions: Return with increasing chest pain, shortness of breath, lightheadedness, dizziness AICD firing more than once or any other concerns. Referrals: Eugenio Napier MD [Medical Doctor] - 2-3 days without fail
[2018-05-30] MEDS ORDERED: NS 1,000 ML IV ONE (20:00)
[2018-05-30 20:11] LABS: PLATELET COUNT 675 10^3/uL (150-400)
[2018-05-30 20:19] LABS: INR 0.98 (0.83-1.16); PROTIME(PATIENT) 13.2 SEC (12.0-15.0)
[2018-05-30] MEDS ORDERED: POTASSIUM CL 20 MEQ/15 ML UDCUP PO ONE (21:03)
[2018-05-30 22:21] VITALS: BP 177/98
--- NOTE | 2018-06-04 09:34 | CPEKG ---
Heart Rate: 95 RR Interval: 632 P-R Interval: 124 QRSD Interval: 92 QT Interval: 392 QTC Interval: 493 P Hazen: 61 QRS Hazen: 24 T Wave Hazen: 70 EKG Severity - BORDERLINE ECG - EKG Impression: SINUS RHYTHM EKG Impression: BORDERLINE PROLONGED QT INTERVAL Electronically Signed By: Giselle Whitmore 07-Jun-2018 14:35:04
== END 2018-05-30 22:14 | disposition home or self-care (01) ==
DX: T82.198A Other mechanical complication of other cardiac electronic device, initial encounter (principal); J45.909 Unspecified asthma, uncomplicated; Y82.8 Other medical devices associated with adverse incidents
CPT/HCPCS: 84484-PO

== ENCOUNTER 2018-07-19 12:36 | Observation (INO) | payer OTHER ==
[2018-07-19 13:25] LABS: PLATELET COUNT 564 10^3/uL (150-400)
[2018-07-19] MEDS ORDERED: NITROGLYCERIN 0.4 MG BTL SL PRN (13:27)
[2018-07-19] MEDS ORDERED: diphenhydrAMINE 25 MG CAP PO ONE ×2 (13:27→14:44)
[2018-07-19] MEDS ORDERED: ASPIRIN EC 325 MG TAB PO ONE ×2 (13:27→14:44)
[2018-07-19] MEDS ORDERED: DIAZEPAM 5 MG TAB PO ONE (13:27)
[2018-07-19] MEDS ORDERED: FAMOTIDINE 20 MG TAB PO ONE (13:27)
[2018-07-19] MEDS ORDERED: TEMAZEPAM 15 MG CAP PO PRN (13:27)
--- NOTE | 2018-07-19 13:29 | EDPHY ---
H & P Stated Complaint: "defibrilator went off" Time Seen by Provider: 07/19/18 13:14 HPI/ROS: CHIEF COMPLAINT: Defibrillator fired HISTORY OF PRESENT ILLNESS: Patient is a 52-year-old female with a history of peripartum cardiomyopathy requiring a defibrillator in 2004. She has had several runs of V-tach in the past requiring cardioversion by the defibrillator. She was called this morning stating that she had had 1 of these episodes overnight. Initially the company could not get a hold of her and so they sent an ambulance. She sent the ambulance away stating that she felt fine. Later she talked to her primary automatic gluing machine operator Dr. Salamanca who is concerned because she had an abnormal stress test 2 weeks ago. He recommended that she come to the ER to be admitted for angiogram. They had planned an angiogram next week. No recent fevers or illness. No nausea vomiting. No chest pain currently. No shortness of breath. Severity: Minimal Modifying factors: None REVIEW OF SYSTEMS: Constitutional: denies: chills, fever, recent illness, recent injury EENTM: denies: blurred vision, double vision, nose congestion Respiratory: denies: cough, shortness of breath Cardiac: See HPI Gastrointestinal/Abdominal: denies: abdominal pain, diarrhea, nausea, vomiting, blood streaked stools Genitourinary: denies: dysuria, frequency, hematuria, pain Musculoskeletal: denies: joint pain, muscle pain Skin: denies: lesions, rash, jaundice, bruising Neurological: denies: headache, numbness, paresthesia, tingling, dizziness, weakness Hematologic/Lymphatic: denies: blood clots, easy bleeding, easy bruising Immunologic/allergic: denies: HIV/AIDS, transplant 10 systems reviewed and negative except as noted EXAM: GENERAL: Well-appearing, well-nourished and in no acute distress. HEAD: Atraumatic, normocephalic. EYES: Pupils equal round and reactive to light, extraocular movements intact, sclera anicteric, conjunctiva are normal. ENT: TMs normal, nares patent, oropharynx clear without exudates. Moist mucous membranes. NECK: Normal range of motion, supple without lymphadenopathy or JVD. LUNGS: Breath sounds clear to auscultation bilaterally and equal. No wheezes rales or rhonchi. HEART: Regular rate and rhythm without murmurs, rubs or gallops. ABDOMEN: Soft, nontender, normoactive bowel sounds. No guarding, no rebound. No masses appreciated. BACK: No CVA tenderness, no spinal tenderness, step-offs or deformities EXTREMITIES: Normal range of motion, no pitting or edema. No clubbing or cyanosis. NEUROLOGICAL: Cranial nerves II through XII grossly intact. Normal speech, normal gait. 5/5 strength, normal movement in all extremities, normal sensation , normal reflexes PSYCH: Normal mood, normal affect. SKIN: Warm, dry, normal turgor, no visible rashes or lesions. Source: Patient Exam Limitations: No limitations - Personal History Current Tetanus/Diphtheria Vaccine: Yes Current Tetanus Diphtheria and Acellular Pertussis (TDAP): Yes Tetanus Vaccine Date: WITHIN 5 YEARS - Medical/Surgical History Hx Asthma: Yes Hx Chronic Respiratory Disease: No Hx Diabetes: No Hx Cardiac Disease: Yes Hx Renal Disease: No Hx Cirrhosis: No Hx Alcoholism: No Hx HIV/AIDS: No Hx Splenectomy or Spleen Trauma: No Other PMH: DEPRESSION, CARDIAC (post maternal myopathy)ISSUES, DEFIBRILLATOR. Asthma, ADD, environmental allergies. - Family History Significant Family History: No pertinent family hx - Social History Smoking Status: Never smoked Alcohol Use: Sober Constitutional: Initial Vital Signs Heart Rate 96 07/19/18 12:41 Respiratory Rate 20 07/19/18 12:41 Blood Pressure 211/90 H 07/19/18 12:41 O2 Sat (%) 98 07/19/18 12:41 O2 Delivery Mode Room Air Allergies/Adverse Reactions: Penicillins Allergy (Unknown, Verified 11/02/17 10:08) Anaphylaxis Home Medications: Medication Instructions Recorded ARIPiprazole [Abilify 10 mg (*)] 30 mg PO HS 07/19/18 Albuterol [Proventil Inhaler HFA 1 - 2 puffs IH Q4H PRN 07/19/18 (*)] Albuterol [Proventil Inhaler HFA 1 - 2 puffs IH Q4H PRN mdi 07/21/18 (*)] Carvedilol [Coreg (*)] 25 mg PO BIDMEAL #120 tab 07/21/18 Digoxin [Lanoxin 125 mcg (RX)] 125 mcg PO HS tab 07/21/18 Enalapril Maleate [Vasotec 10 MG 10 mg PO DAILY tab 07/21/18 (*)] Fluticasone/Salmeter 250/50Mcg 1 puffs IH BID PRN disk 07/21/18 [Advair 250/50 (*)] Furosemide [Lasix 40 MG (*)] 40 mg PO DAILY PRN tab 07/21/18 Gabapentin [Neurontin 100 MG (*)] 100 mg PO HS PRN cap 07/21/18 buPROPion SR [Wellbutrin 150mg SR 150 mg PO TID tab 07/21/18 (*)] traMADol [Ultram 50 mg (*)] 50 - 100 mg PO Q4 PRN tab 07/21/18 Medical Decision Making - Diagnostics EKG Interpretation: An EKG obtained and was read and documented in trace view. Please see trace view for full reading and report. Sinus rhythm, no acute ischemic changes ED Course/Re-evaluation: Dr. Nagel was in the room when I evaluated the patient. He recommends admission to their service. The pacemaker tracing from overnight shows what looks like torsades. They are also requesting we check her magnesium. She was successfully cardioverted with 1 shock. The patient is currently asymptomatic. I have placed admission orders. Differential Diagnosis: Partial list of the Differential diagnosis considered include but were not limited to; V-tach, PVC, torsades and although unlikely based on the history and physical exam, I also considered PE, acute coronary disease. Critical Care Time: Critical care time spent by me, Dr. Olivera exclusive with this patient was 35 minutes, exclusive of the PA time exclusive of procedures. The organ system that was at risk was cardiovascular and I gave consultation, admission, observation to prevent worsening of the patient's condition - Data Points Laboratory Results: Laboratory Results 07/19/18 12:20 07/19/18 12:20 Medications Given: Discontinued Medications Acetaminophen (Tylenol) 650 mg PO QID PRN PRN Reason: Pain, Mild Able to Take PO Stop: 01/15/19 13:26 Last Admin: 07/20/18 10:54 Dose: 650 mg Aripiprazole (Abilify) 30 mg PO HS MARZENA Stop: 01/15/19 20:59 Last Admin: 07/20/18 20:04 Dose: 30 mg Aspirin Buffered (Aspirin Ec) 325 mg PO ONCALL ONE Stop: 07/19/18 13:28 Last Admin: 07/19/18 15:17 Dose: 325 mg Bupropion HCl (Wellbutrin Sr) 150 mg PO TID MARZENA Stop: 01/15/19 21:59 Last Admin: 07/21/18 16:20 Dose: Not Given Carvedilol (Coreg) 25 mg PO BIDMEAL MARZENA Stop: 01/15/19 17:59 Last Admin: 07/21/18 08:52 Dose: 25 mg Diazepam (Valium) 5 mg PO ONCALL ONE Stop: 07/19/18 13:28 Last Admin: 07/19/18 15:17 Dose: 5 mg Digoxin (Lanoxin) 125 mcg PO HS MARZENA Stop: 01/15/19 20:59 Last Admin: 07/20/18 20:04 Dose: 125 mcg Diphenhydramine HCl (Benadryl) 25 mg PO ONCALL ONE Stop: 07/19/18 13:28 Last Admin: 07/19/18 15:16 Dose: 25 mg Enalapril Maleate (Vasotec) 10 mg PO DAILY MARZENA Stop: 01/16/19 08:59 Last Admin: 07/21/18 08:53 Dose: 10 mg Famotidine (Pepcid) 20 mg PO ONCALL ONE Stop: 07/19/18 13:28 Last Admin: 07/19/18 15:17 Dose: 20 mg Influenza Virus Vaccine Quadrival (Flulaval Quad [id number] (6mo+)) 0.5 ml IM .ONCE ONE Stop: 07/20/18 09:28 Last Admin: 07/20/18 10:48 Dose: 0.5 ml Tramadol HCl (Ultram) 50 - 100 mg PO Q4 PRN PRN Reason: Pain, Moderate Able to Take PO Stop: 01/15/19 21:17 Last Admin: 07/21/18 16:59 Dose: 100 mg Departure - Departure Disposition: [facility] Acute Clinical Impression: Ventricular tachycardia Condition: Fair
[2018-07-19] MEDS ORDERED: NS 1,000 ML IV SCH (13:30)
[2018-07-19 13:38] LABS: INR 1.05 (0.83-1.16); PROTIME(PATIENT) 13.9 SEC (12.0-15.0)
--- NOTE | 2018-07-19 14:29 | CPEKG ---
Test Reason : OPEN Blood Pressure : / mmHG Vent. Rate : 090 BPM Atrial Rate : 090 BPM P-R Int : 125 ms QRS Dur : 098 ms QT Int : 404 ms P-R-T Axes : 068 029 063 degrees QTc Int : 495 ms Sinus rhythm Borderline prolonged QT interval Confirmed by Jaime Olivera ([id number]) on 07/19/2018 2:28:46 PM Referred By: Confirmed By:Jaime Olivera
[2018-07-19] MEDS ORDERED: FAMOTIDINE 20 MG TAB ONE (14:44)
[2018-07-19] MEDS ORDERED: DIAZEPAM 5 MG TAB ONE (14:44)
[2018-07-19] MEDS ORDERED: LIDOCAINE 1% 300 MG/30 ML SDV ONE (14:55)
[2018-07-19] MEDS ORDERED: fentaNYL 100 MCG/2 ML INJ ONE (14:55)
[2018-07-19] MEDS ORDERED: MIDAZOLAM 2 MG/2 ML VIAL ONE (14:55)
[2018-07-19] MEDS ORDERED: IOPAMIDOL (ISOVUE-370) 150 ML BTL IV ONE (14:56)
[2018-07-19] MEDS ORDERED: VERAPAMIL 5 MG/2 ML VIAL ONE (14:56)
[2018-07-19] MEDS ORDERED: HEPARIN 10,000 UNIT/10 ML MDV (1,000 UNIT/ML) ONE (14:56)
--- NOTE | 2018-07-19 16:22 | PDPROPOC ---
Sedation Plan of Care Sedation Plan of Care: vital signs stable, mental status noted, patient educated of risks, benefits, alternatives, patient can tolerate sedation ASA Classification: ASA 3 Planned drugs: fentanyl, midazolam Mallampati Score: Class 3 Mallampati Reference Image: Patient passed 3-3-2 rule?: No
--- NOTE | 2018-07-19 16:23 | PDHPUP ---
History & Physical Update H&P update statement: This history and physical update is based on an assessment of the patient which was completed after admission or registration (within 24 hours), but prior to the surgery/procedure. H&P update: H&P reviewed & patient examined, changes noted (patient with AICD shock for polymorphic VT abnormal stress test...)
--- NOTE | 2018-07-19 16:35 | PDDXCAT ---
Diagnostic Cath Note - . Date: 07/19/18 Team Otr Truck Driver: Robe - Procedure Access: left wrist Procedure: left heart catheterization, left ventriculogram - Materials Left Heart Cath size: 4F Left Heart Cath materials: pigtail - Findings-Left Heart Catheterization LM: 8mm in size and bifurcates into LAD and circumflex. LCX: 6mm in size. RCA: 4mm in size. EDP: 40mmHg LVEF: 35% with moderate to severe mitral regurgitation Wall motion: On the LV gram there is normal LV systolic function. The EF is 35% . There is evidence of global hypokinesis. The visualized portion of the thoracic aortic valve reveals three sinuses of valsalva most consistent with a trileaflet valve. There is no gradient on pullback across the aortic valve. There is no evidence of clair dissection or aneurysm formation. The mitral regurgitation is at least moderate with evidence of left atrial enlargement and no definite evidence of prolapse. Complications: NONE Estimated blood loss: <50ml Assessment: The patient has evidence of a dialted cardiomyopathy with associated mitral regurgitation, which is likely functional. There is no evidence of coronary artery disease. There is a right dominant system. The patient has elevated LVEDP at 32 mmHg and severe systemic hypertension. Plan: The patient will be admitted for blood pressure control and for up titration of her medications. Intervention: NONE Patient Problems: Problems Problem Status Onset Ventricular tachycardia Acute Acute bronchitis Acute Cardiomyopathy Acute HTN (hypertension) Acute Seasonal allergic reaction Acute
[2018-07-19] MEDS ORDERED: METOPROLOL TARTRATE 5 MG/5 ML INJ ONE (16:40)
[2018-07-19] MEDS ORDERED: FUROSEMIDE 40 MG/4 ML VIAL ONE (16:53)
[2018-07-19] MEDS ORDERED: ONDANSETRON 4 MG/2 ML VIAL IVP PRN (16:57)
[2018-07-19] MEDS ORDERED: ATROPINE SULFATE 1 MG/10 ML SYR IVP PRN (16:57)
[2018-07-19] MEDS ORDERED: ALBUTEROL 60 PUFFS/8 GM MDI IH PRN (17:00)
[2018-07-19] MEDS ORDERED: GABAPENTIN 100 MG CAP PO PRN (17:00)
[2018-07-19] MEDS ORDERED: FUROSEMIDE 40 MG TAB PO PRN (17:00)
[2018-07-19] MEDS ORDERED: FLUTICASONE/SALMETER 250/50MCG DISKUS IH PRN (17:00)
[2018-07-19] MEDS ORDERED: ALBUTEROL 3 ML DEYVIAL IH PRN (17:15)
--- NOTE | 2018-07-19 17:53 | GHP ---
DATE OF ADMISSION: 07/19/2018 CHIEF COMPLAINT: "I was shocked by my defibrillator." HISTORY OF PRESENT ILLNESS: The patient is a 52-year-old female with a history of a peripartum cardi omyopathy, which occurred around the time of her child's in 1999. Since that time, the patient has suffered from a cardiomyopathy who has been followed by Dr. Jake Salamanca of [facility]. The patient received a prophylactic defibrillator in 2004, and has had 1 prior countershock in the past. The patient was in her usual state of health until this morning when she was awakened by EMS personn el at her house. We found that she had received an AICD countershock following failed ATP therapy fo r polymorphic ventricular tachycardia . She did not feel the shock as she was asleep and sent them a way, and went back to bed. Domi from our EP service at the office called and was able to reach her and asked that she go to the hospital via EMS, which she did. [facility] complaints of chest pain, pressure, tightness, or shortness of breath. She did have a recent echocardiogram in our office, which showed some disparity between that and the nuclear stress test, which was performed. A nuclear stress test was indicative of possible anterior wall artifact with an ejection fraction of 38%, which was reduced compared to a prior study, and ther efore, Cardiology consultation with Dr. Salamanca was obtained. He felt it may be prudent to proceed wi cardiac catheterization. An echocardiogram was performed in the office, which revealed an ejectio n fraction, which looked more normal. I have not yet reviewed those images. Because of the patient' s history of an abnormal stress test and an AICD shock for polymorphic VT, we felt to be most prudent to proceed with cardiac catheterization to rule out flow-limiting obstruction of her coronary circul ation. REVIEW OF SYSTEMS: GENERAL: As I mentioned, the patient has been in her usual state of health. Her review of systems is only pertinent for the AICD discharge and notification for the same from [facility]. CONSTITUTIONAL: She has not had chills, fever, recent illness. HEENT: Negative for double v ision or nose congestion. RESPIRATORY: She denies cough or shortness of breath. CARDIAC: Please s ee the HPI. GENITOURINARY: She has not had frequency, dysuria, hematuria, or pain. MUSCULOSKELETAL : She denies joint or muscle pain. SKIN: She denies lesions, rash, jaundice or bruising. NEUROLOG IC: She denies headache, numbness, paresthesia, tingling, dizziness, or weakness. HEMATOLOGIC: She denies blood clots, easy bleeding, or bruising. She denies a history of HIV, AIDS, or transplant. S he also denies hepatitis C. PHYSICAL EXAMINATION: GENERAL: She appears well. She is in no acute distress. HEENT: Her head is atraumatic, normocephalic. Pupils are equal, round, react to light. Extraocular motion is intact. Her sclerae are anicteric. NECK: Reveals normal range of motion and is supple without lymphadenopa thy or JVD. LUNGS: Clear to auscultation bilaterally without wheezes, rales or rhonchi. HEART: No rmal S1, S2 with a soft murmur consistent with mitral regurgitation. There is an S3, S4 summation ga llop. ABDOMEN: Soft with positive bowel sounds. It is nondistended, nontender. EXTREMITIES: Warm , dry, and well perfused without significant peripheral edema. NEUROLOGIC: She has normal speech an d normal gait with 5/5 strength. She has normal mood and affect, and is cooperative and not anxious. SKIN: Warm and dry as I mentioned without a visible rash. VITAL SIGNS: Blood pressure is 212/90, heart rate 96, respirations 20 and unlabored. She is afebrile. Oxygen saturation is 98% on room ai r. CURRENT MEDICATIONS: Include Coreg 3.125 p.o. b.i.d., digoxin 0.125 mg p.o. q.h.s., Neurontin 100 mg p.o. daily, Abilify 10 mg p.o. q.h.s., Lasix 40 mg adjusted between 10 and 40 mg daily as needed for peripheral edema. She is on methylphenidate 30 mg p.o. q.a.m. for ADD, bupropion, Wellbutrin 150 of the SR formulation 150 p.o. daily, and bupropion XL 450 mg p.o. daily. She is on enalapril at a dos e of 10 mg daily and albuterol 2 puffs q.4 hours as needed cough. DIAGNOSTIC DATA: EKG reveals normal sinus rhythm and does not reveal acute changes of ischemia or in farction. Telemetry features suggest polymorphic VT, which was not paced terminated and resulted in an AICD firing shock x1, with a clean break into sinus rhythm. IMPRESSION/PLAN: The patient had an automatic implantable cardioverter defibrillator discharge with a recent nuclear stress test suggestive of possible anterior ischemia. Given the patient's clinical history, I think it would be prudent to proceed with cardiac catheterization to rule out flow-limitin g obstruction of the anterior wall of her heart. I have explained the risks, benefits, and alternati ves to this course of action to the patient who understands and is willing to proceed as planned. Clare price clearly will need to be on an increased dose of blood pressure medications as that is certainly not helping her cardiomyopathy. I will also obtain an Electrophysiology consultation with Dr. Houston to se price if he would like to consider routine antiarrhythmic therapy given the findings if the cardiac kassie terization is found to be normal and free of flow-limiting obstruction. The specific question with c onsultation would be whether or not the patient should be loaded with a true antiarrhythmic drug, suc h as amiodarone to help reduce the risk of subsequent automatic implantable cardioverter defibrillato r discharge and shock. /[id number]/MODL
[2018-07-19] MEDS: CARVEDILOL 25 MG TAB PO SCH (19:09)
[2018-07-19] MEDS: ACETAMINOPHEN 325 MG TAB PO PRN (19:55)
[2018-07-19] MEDS: DIGOXIN 125 MCG TAB PO SCH (21:33)
[2018-07-19] MEDS: buPROPion SR 150 MG TAB PO SCH (21:33)
[2018-07-19] MEDS: ARIPiprazole 10 MG TAB PO SCH (21:33)
[2018-07-19] MEDS: traMADol 50 MG TAB PO PRN (21:33)
[2018-07-20] MEDS: traMADol 50 MG TAB PO PRN ×4 (09:14→22:50)
[2018-07-20] MEDS: ENALAPRIL MALEATE 10 MG TAB PO SCH (09:14)
[2018-07-20] MEDS: CARVEDILOL 25 MG TAB PO SCH ×2 (09:14→17:54)
[2018-07-20] MEDS: buPROPion SR 150 MG TAB PO SCH ×3 (09:15→20:08)
[2018-07-20] MEDS: ACETAMINOPHEN 325 MG TAB PO PRN (10:54)
--- NOTE | 2018-07-20 16:51 | ASMTCMCOM ---
CM Note CM Note Notes: Spoke with pts RN. Pt lives at home with her partner independently. No therapies ordered. Pt likely to discharge in 1-2 more days independently. No CM needs noted at this time. CM to follow. D/C Plan: Independent Date Signed: 07/20/2018 04:50 PM Electronically Signed By:Linda Batres
[2018-07-20] MEDS: DIGOXIN 125 MCG TAB PO SCH (20:04)
[2018-07-20] MEDS: ARIPiprazole 10 MG TAB PO SCH (20:04)
[2018-07-21] MEDS: buPROPion SR 150 MG TAB PO SCH ×2 (07:02→16:20)
[2018-07-21] MEDS: CARVEDILOL 25 MG TAB PO SCH (08:52)
[2018-07-21] MEDS: ENALAPRIL MALEATE 10 MG TAB PO SCH (08:53)
[2018-07-21] MEDS: traMADol 50 MG TAB PO PRN ×2 (09:31→16:59)
[2018-07-21 15:23] VITALS: BP 169/88
--- NOTE | 2018-07-21 18:08 | GDS ---
ADMISSION DIAGNOSES: 1. Status post automatic implantable cardioverter defibrillator discharge for polymorphic ventricula r tachycardia. 2. History of peripartum cardiomyopathy. 3. Hypertension. 4. Depression/anxiety. 5. History of hypercalcemia and iron deficiency anemia. DISCHARGE DIAGNOSIS: 1. Polymorphic ventricular tachycardia, status post automatic implantable cardioverter defibrillator discharge in a patient on fairly high-dose Wellbutrin, as well as Adderall. 2. Normal coronary arteries by angiography performed 07/19/2018. 3. Hypertension. 4. Anxiety/depression. HISTORY OF PRESENT ILLNESS: For detailed history of present illness, please see the recently dictate denis H and P. Briefly, the patient was in her usual state of health when she was awakened from sleep by EMS personnel during a wellness check ordered by our office as they were unable to reach her followi ng what appeared to be an episode of polymorphic VT treated with shock. Apparently, the patient slep t through the countershock and did not feel it, so she sent EMS away. Ultimately, Dorota from our of [facility] was able to contact her, explained that she indeed had appropriate defibrillator shock, and aske d that she call a 911 ambulance to take her back to the hospital, which was indeed performed. Of not e is that she has had some chest discomfort recently and a recent nuclear stress test was suggestive of possible anterior ischemia. HOSPITAL COURSE: Because the patient has evidence of polymorphic VT and appropriate AICD discharge, as well as the history of an abnormal nuclear stress test, we elected to proceed with urgent angiogra phy on Thursday morning. The patient did not have evidence of any significant coronary disease, in fac t, her arteries were quite large with a well branching system. Please see the dictated cardiology pr ocedure note for the details of that procedure. The patient was noted to have a cardiomyopathy with ejection fraction, which was depressed by LV gram, and she was also noted to have severe systemic hyp ertension in spite of sedation in thecath lab with systolic pressures as high as 219. We placed the patient on additional medication. We started the patient on Coreg 25 mg p.o. twice pete ly, which she has tolerated well without shortness of breath or asthma type symptoms. I suspect that her "asthma" may be allergic rhinitis coupled with shortness of breath related to her cardiomyopathy , and it may in fact be cardiac asthma as opposed to true reactive airway disease. In any case, her Wellbutrin was held because of the high doses that were being used and her Adderall was also held. T he patient was continued on her other medications. She was kept in the hospital for 2 overnights, an d on the afternoon of her discharge from the hospital, she is medically stable and ready for discharg e to home. A 12-lead EKG performed today revealed a QT interval of 413 with a QT corrected for rate of 468 witho ut ischemic changes. She is anemic as she is chronically, which probably needs to be addressed with her primary care physician with a hemoglobin of 8.7 and 32.6 with an elevated platelet count, which m ay be secondary to iron deficiency anemia. She does certainly have microcytic cells with a low mean corpuscular hemoglobin and mean corpuscular hemoglobin concentration. There is also polychromasia, h ypochromasia. In addition, the microcytic cells would be most consistent with iron deficiency or blo od-loss anemia. Her coagulation studies were normal. Her BUN and creatinine were 16 and 0.8 with a glucose of 118 as a nonfasting sample. Calcium was 9.8, and the magnesium was 2.2. At the time of her discharge from the hospital, the patient's blood pressure was 121/69 this afternoo n, and nearing the time for a second dose of her Coreg was 169/88. All the rest of the numbers have been below 160 systolic over the past 24 hours. I do think it is safe for her to be discharged from the hospital. I have instructed to return promptly should she experience another AICD firing event. She has an appointment scheduled with Dr. Jake Salamanca on the of this month, and I have asked t hat she keep that appointment. The cardiac catheterization site reveals moderate ecchymoses from the level of the puncture site to her mid wrist on the left side. It is not actively bleeding and the r adial pulses proximal and distal to the puncture site are easily palpable. DISCHARGE MEDICATIONS: Are to include albuterol, Proventil inhaler as needed, Abilify 30 mg p.o. q.h .s., Wellbutrin SR formulation 150 p.o. t.i.d., Coreg 25 mg p.o. b.i.d., digoxin, which is a chronic medicine for her 125 mcg daily, enalapril 10 mg daily, furosemide 40 mg daily as needed, Neurontin 10 0 mg p.o. q.h.s., and the Adderall has been discontinued. DISCHARGE INSTRUCTIONS/FOLLOWUP: Again, her activity is to be limited by wrist precautions. She is return promptly to the emergency department should she experience AICD firing event, fainting, near f ainting, or other clinical symptoms of concern. /[id number]/MODL
--- NOTE | 2018-07-22 11:50 | CPEKG ---
Test Reason : OPEN Blood Pressure : / mmHG Vent. Rate : 066 BPM Atrial Rate : 127 BPM P-R Int : 137 ms QRS Dur : 096 ms QT Int : 442 ms P-R-T Axes : 073 081 077 degrees QTc Int : 464 ms Sinus rhythm Nonspecific T abnrm, anterolateral leads Confirmed by Wilder Wayne ([id number]) on 07/22/2018 11:49:35 AM Referred By: Confirmed By:Wilder Wayne
--- NOTE | 2018-07-22 11:59 | CPEKG ---
Test Reason : OPEN Blood Pressure : / mmHG Vent. Rate : 077 BPM Atrial Rate : 077 BPM P-R Int : 133 ms QRS Dur : 104 ms QT Int : 413 ms P-R-T Axes : 068 038 062 degrees QTc Int : 468 ms Sinus rhythm Probable left atrial enlargement Confirmed by Wilder Wayne ([id number]) on 07/22/2018 11:59:07 AM Referred By: Confirmed By:Wilder Wayne
== END 2018-07-21 17:35 | disposition home or self-care (01) ==
LOC: EDUNIT# → F2W 18:05
PROVIDERS: ADMIT Internal Medicine Cardiovascular Disease; ATTEND Internal Medicine Cardiovascular Disease
DX: I47.2 Ventricular tachycardia (principal); I42.0 Dilated cardiomyopathy; I10 Essential (primary) hypertension; I34.0 Nonrheumatic mitral (valve) insufficiency; F41.8 Other specified anxiety disorders; Z95.810 Presence of automatic (implantable) cardiac defibrillator; Z88.0 Allergy status to penicillin; Z23 Encounter for immunization
CPT/HCPCS: 90686; 92960; 93005; 93458; 96372; 99285; G0008; G0378; J1644; J1940; J2250; J3010; Q9967

== ENCOUNTER 2018-08-30 09:07 | Emergency (ER) | payer OTHER ==
[2018-08-30] MEDS ORDERED: IBUPROFEN SUSP 100 MG/5 ML UDCUP PO ONE (09:38)
--- NOTE | 2018-08-30 09:41 | EDPHY ---
H & P Time Seen by Provider: 08/30/18 09:18 HPI/ROS: This patient describes one-week history of right elbow pain over the area of the lateral epicondyle worse when she is picking up items. She thinks it may be attributable to a lot of time spent at her computer over the last 10 days using the mouse. She also reports that she has to fend off her CT my pushing away with her right arm while she is working at the computer at this is been repetitive activity. She reports moderate pain that is worsened with lifting and supinating with right elbow. No other recent trauma or complaints. ROS: Constitutional: No fevers Neuro: No numbness or tingling Musculoskeletal: No other musculoskeletal complaints this time Integumentary: No associated skin rash or erythema 5 point review of symptoms is performed and otherwise negative with exception of pertinent positives and negatives listed in HPI and ROS Smoking Status: Never smoked Physical Exam: Physical Exam Vital signs are normal. General: No acute distress Eyes: Pupils equal and react to light. Extraocular motions are intact. Lungs: No respiratory distress. Extremities: Atraumatic normal except for right elbow Right elbow exam is notable for tenderness lateral epicondyle and pain that worsens with supination versus resistance. There is no associated erythema, elbow effusion, warmth to touch, ecchymosis, olecranon swelling or tenderness or other abnormal findings. Cardiac: Brisk capillary refill is intact throughout. Pulses are 2+ and symmetric in the affected extremity. Skin: No rash or pallor. Neuro: Alert and oriented with no sensorimotor deficits in the affected extremity. Initial differential diagnosis: Moderate epicondylitis, elbow strain, contusion Constitutional: Initial Vital Signs Temperature (C) 37.0 C 08/30/18 09:14 Heart Rate 100 08/30/18 09:14 Respiratory Rate 16 08/30/18 09:14 Blood Pressure 154/110 H 08/30/18 09:14 O2 Sat (%) 95 08/30/18 09:14 O2 Delivery Mode Room Air Allergies/Adverse Reactions: Penicillins Allergy (Unknown, Verified 08/30/18 09:11) Anaphylaxis Home Medications: Medication Instructions Recorded ARIPiprazole [Abilify 10 mg (*)] 30 mg PO HS 07/19/18 Albuterol [Proventil Inhaler HFA 1 - 2 puffs IH Q4H PRN mdi 07/21/18 (*)] Carvedilol [Coreg (*)] 25 mg PO BIDMEAL #120 tab 07/21/18 Digoxin [Lanoxin 125 mcg (RX)] 125 mcg PO HS tab 07/21/18 Enalapril Maleate [Vasotec 10 MG 10 mg PO DAILY tab 07/21/18 (*)] Fluticasone/Salmeter 250/50Mcg 1 puffs IH BID PRN disk 07/21/18 [Advair 250/50 (*)] Furosemide [Lasix 40 MG (*)] 40 mg PO DAILY PRN tab 07/21/18 Gabapentin [Neurontin 100 MG (*)] 100 mg PO HS PRN cap 07/21/18 buPROPion SR [Wellbutrin 150mg SR 150 mg PO TID tab 07/21/18 (*)] MDM/Departure - MDM Medications Given: Discontinued Medications Ibuprofen (Motrin Oral Solution) 600 mg PO EDNOW ONE Stop: 08/30/18 09:39 Last Admin: 08/30/18 09:50 Dose: 600 mg ED Course/Re-evaluation: Patient's exam is benign today. No evidence of bony injury, infectious etiology other red flag findings and her history and physical exam is most consistent with lateral epicondylitis. I counseled regarding this. She understands need to return emergency department should she develop worsening symptoms despite treatment plan. - Depart Disposition: Home, Routine, Self-Care Clinical Impression: Difficulty swallowing pills Lateral epicondylitis of elbow Qualifiers: Laterality: unspecified laterality Qualified Code(s): M77.10 - Lateral epicondylitis, unspecified elbow Condition: Good Instructions: Tennis Elbow (ED) Additional Instructions: Diagnosis: Right elbow lateral epicondylitis 2. swallowing difficulties Plan: Ibuprofen 600 mg per 6 hr as needed for pain inflammation Tylenol in addition for pain if needed By a"tennis elbow"band at the pharmacy or sporting goods store and wear this Try changing you're mouse and/or your body physician while working itchy computer. Gentle stretches daily for 3-5 minutes as described. Gentle size affected area Follow up primary care physician for any ongoing symptoms Also consider follow-up with the GI specialist listed below regarding her swallowing concerns. Referrals: Mari Adrian MD [Primary Care Provider] - As per Instructions William Francis MD [Medical Doctor] - As per Instructions
[2018-08-30] MEDS ORDERED: IBUPROFEN SUSP 100 MG/5 ML UDCUP ONE (09:49)
[2018-08-30 13:37] VITALS: BP 154/110
== END 2018-08-30 09:53 | disposition home or self-care (01) ==
LOC: CED 09:07
DX: M77.11 Lateral epicondylitis, right elbow (principal)

== ENCOUNTER 2018-10-26 03:40 | Emergency (ER) | payer OTHER ==
--- NOTE | 2018-10-26 04:00 | EDPHY ---
H & P Stated Complaint: burning with urination Time Seen by Provider: 10/26/18 04:00 HPI/ROS: HPI CHIEF COMPLAINT: Dysuria. X1 day. HISTORY OF PRESENT ILLNESS: Patient is a 53-year-old female, presents emergency room with dysuria. She states that she has had dysuria urinary frequency x1 day progressively got worse over the night. No back pain no vomiting and no fever. Denies chest pain or shortness of breath. Of note she reports to me that her blood pressure is normally well controlled, she states she has white coat syndrome and very high when she checks into the emergency room normally. She will close log at home. She denies any chest pain or shortness of breath. Typically tells me her blood pressure is 120s over 80s. Takes enalapril. Past Medical History: Cardiomyopathy, hypertension, depression, ADD Past Surgical History: AICD left chest Social History: Denies drugs alcohol tobacco. Family History: Noncontributory ROS REVIEW OF SYSTEMS: 10 Systems were reviewed and negative with the exception of the elements mentioned in the history of present illness. Exam Constitutional triage nursing summary reviewed, vital signs reviewed, awake/ alert. Noted be hypertensive at triage. Tachycardic. Eyes normal conjunctivae and sclera, EOMI, PERRLA. HENT normal inspection, atraumatic, moist mucus membranes, no epistaxis, neck supple/ no meningismus, no raccoon eyes. Respiratory clear to auscultation bilaterally, normal breath sounds, no respiratory distress, no wheezing. Cardiovascular rate normal, regular rhythm, no murmur, no edema, distal pulses normal. Gastrointestinal soft, non-tender, no rebound, no guarding, normal bowel sounds, no distension, no pulsatile mass. Genitourinary no CVA tenderness. Musculoskeletal no midline vertebral tenderness, full range of motion, no calf swelling, no tenderness of extremities, no meningismus, good pulses, neurovascularly intact. Skin pink, warm, & dry, no rash, skin atraumatic. Neurologic awake, alert and oriented x 3, AAOx3, moves all 4 extremities equally, motor intact, sensory intact, CN II-XII intact, normal cerebellar, normal vision, normal speech. Psychiatric normal mood/affect. Heme/Lymph/Immune no lymphadenopathy. Differential Diagnosis: But is not limited to in a particular order UTI, cystitis, pyelonephritis, anxiety, white coat syndrome. Medical Decision Making: Plan for this patient check UA. Re-evaluation: Patient's urinalysis reviewed shows leukocyte esterase positive. Plan for this patient urine culture P.o. Keflex given in emergency room. Prescription for peridium and Keflex. Return precautions discussed with the patient she understands return emergency room she develops worsening abdominal pain, fever, vomiting or back pain. Patient understands keep a close watch her blood pressure. Was noted to be high here and she arrived much improved with time 160/80. She did receive her morning dose of enalapril Keflex in the emergency Keflex for home. Urine culture sent. Return precautions discussed return emergency room if worsening abdominal pain, fever, vomiting. Source: Patient - Personal History Current Tetanus/Diphtheria Vaccine: Yes Tetanus Vaccine Date: 2012 - Medical/Surgical History Hx Asthma: Yes Hx Chronic Respiratory Disease: No Hx Diabetes: No Hx Cardiac Disease: Yes Hx Renal Disease: No Hx Cirrhosis: No Hx Alcoholism: No Hx HIV/AIDS: No Hx Splenectomy or Spleen Trauma: No Other PMH: DEPRESSION, CARDIAC (post maternal myopathy)ISSUES, DEFIBRILLATOR/ Pacer. Asthma, ADD, environmental allergies. - Social History Smoking Status: Never smoked Constitutional: Initial Vital Signs Temperature (C) 36.9 C 10/26/18 03:46 Heart Rate 118 H 10/26/18 03:46 Respiratory Rate 16 10/26/18 03:46 Blood Pressure 214/107 H 10/26/18 03:46 O2 Sat (%) 100 10/26/18 03:46 O2 Delivery Mode Room Air Allergies/Adverse Reactions: Penicillins Allergy (Unknown, Verified 10/26/18 03:47) Anaphylaxis Home Medications: Medication Instructions Recorded ARIPiprazole [Abilify 10 mg (*)] 30 mg PO HS 07/19/18 Albuterol [Proventil Inhaler HFA 1 - 2 puffs IH Q4H PRN mdi 07/21/18 (*)] Carvedilol [Coreg (*)] 25 mg PO BIDMEAL #120 tab 07/21/18 Digoxin [Lanoxin 125 mcg (RX)] 125 mcg PO HS tab 07/21/18 Enalapril Maleate [Vasotec 10 MG 10 mg PO DAILY tab 07/21/18 (*)] Fluticasone/Salmeter 250/50Mcg 1 puffs IH BID PRN disk 07/21/18 [Advair 250/50 (*)] Furosemide [Lasix 40 MG (*)] 40 mg PO DAILY PRN tab 07/21/18 Gabapentin [Neurontin 100 MG (*)] 100 mg PO HS PRN cap 07/21/18 buPROPion SR [Wellbutrin 150mg SR 150 mg PO TID tab 07/21/18 (*)] Cephalexin [Keflex] 500 mg PO Q6H #28 cap 10/26/18 Phenazopyridine HCl [Pyridium] 200 mg PO TID #15 tab 10/26/18 Medical Decision Making - Data Points Laboratory Results: 10/26/18 03:55 Urine Color COLORLESS Urine Appearance CLEAR Urine pH 5.0 (5.0-7.5) Ur Specific Shelly 1.004 (1.002-1.030) Urine Protein NEGATIVE (NEGATIVE) Urine Ketones NEGATIVE (NEGATIVE) Urine Blood NEGATIVE (NEGATIVE) Urine Nitrate NEGATIVE (NEGATIVE) Urine Bilirubin NEGATIVE (NEGATIVE) Urine Urobilinogen NEGATIVE EU EU (0.2-1.0) Ur Leukocyte Esterase 2+ H (NEGATIVE) Urine RBC 3-5 /hpf H /hpf (0-3) Urine WBC 1-3 /hpf /hpf (0-3) Ur Epithelial Cells TRACE /lpf /lpf (NONE-1+) Urine Mucus TRACE /lpf /lpf (NONE-1+) Urine Glucose NEGATIVE (NEGATIVE) Medications Given: Discontinued Medications Cephalexin HCl (Keflex) 500 mg PO EDNOW ONE PRN Reason: Protocol Stop: 10/26/18 04:21 Last Admin: 10/26/18 04:30 Dose: 500 mg Enalapril Maleate (Vasotec) 10 mg PO EDNOW ONE Stop: 10/26/18 04:38 Last Admin: 10/26/18 04:42 Dose: 10 mg Phenazopyridine HCl (Pyridium) 200 mg PO EDNOW ONE Stop: 10/26/18 04:23 Last Admin: 10/26/18 04:30 Dose: 200 mg Departure - Departure Disposition: Home, Routine, Self-Care Clinical Impression: UTI (urinary tract infection) Condition: Good Instructions: Urinary Tract Infection in Women (ED) Additional Instructions: 1. Drink lots of fluids stay well-hydrated 2. Return to the emergency room if worsening symptoms Referrals: Mari Adrian MD [Primary Care Provider] - As per Instructions Prescriptions: Cephalexin [Keflex] 500 mg PO Q6H #28 cap Phenazopyridine HCl [Pyridium] 200 mg PO TID #15 tab
[2018-10-26] MEDS ORDERED: CEPHALEXIN 500 MG CAP PO ONE (04:20)
[2018-10-26] MEDS ORDERED: CEPHALEXIN 500MG PREPACK#4 BTL TAKEHOME ONE (04:20)
[2018-10-26] MEDS ORDERED: PHENAZOPYRIDINE HCL 200 MG TAB PO ONE (04:22)
[2018-10-26] MEDS ORDERED: ENALAPRIL MALEATE 10 MG TAB PO ONE (04:37)
[2018-10-26 05:47] VITALS: BP 160/81
== END 2018-10-26 05:45 | disposition home or self-care (01) ==
DX: N39.0 Urinary tract infection, site not specified (principal); I10 Essential (primary) hypertension

== ENCOUNTER 2018-11-20 22:58 | Emergency (ER) | payer MEDICAID, OTHER ==
[2018-11-20] MEDS ORDERED: NS 1,000 ML IV ONE (23:14)
[2018-11-20] MEDS ORDERED: FAMOTIDINE 20 MG/NACL 50 ML IV ONE (23:15)
--- NOTE | 2018-11-20 23:26 | EDPHY ---
H & P Stated Complaint: MID CHEST PAIN SINCE EARLY AM, HURTS TO TOUCH, SOB Time Seen by Provider: 11/20/18 23:06 HPI/ROS: Chief Complaint: Chest pain HPI: 53-year-old woman with a history of peripartum cardiomyopathy with an AICD , ventricular tachycardia, hypertension presenting with chest pain which began o 'clock 10:00 a.m. This morning. Pain is an 8/10. It is in her central and left upper chest. Has had some increasing cough she associated with her asthma. No fevers or chills. No nausea or vomiting. Pain is been constant. There are no aggravating or alleviating factors. She did have a cardiac catheterization in July of 2017 which showed normal coronaries. No fevers or chills. Mild cough productive of whitish sputum. ROS: 10 systems were reviewed and were negative except those elements noted in the HPI. PMH: Peripartum cardiomyopathy status post AICD placement in 2004, hypertension , ventricular tachycardia Social History: No smoking, no alcohol, no recreational drug use Family History: non-contributory Physical Exam: Gen: Awake, Alert, No Distress HEENT: Nose: no rhinorrhea Eyes: PERRLA, EOMI Mouth: Moist mucosa Neck: Supple, no JVD Chest: nontender, lungs clear to auscultation Heart: S1, S2 normal, no murmur Abd: Soft, non-tender, no guarding Back: no CVA tenderness, no midline tenderness Ext: no edema, non-tender Skin: no rash Neuro: CN II-XII intact, Sensation grossly intact, Strength 5/5 in bilateral upper and lower extremities - Personal History Current Tetanus Diphtheria and Acellular Pertussis (TDAP): Yes Tetanus Vaccine Date: 2012 - Medical/Surgical History Hx Asthma: Yes Hx Chronic Respiratory Disease: No Hx Diabetes: No Hx Cardiac Disease: Yes Hx Renal Disease: No Hx Cirrhosis: No Hx Alcoholism: No Hx HIV/AIDS: No Hx Splenectomy or Spleen Trauma: No Other PMH: DEPRESSION, CARDIAC (post maternal myopathy)ISSUES, DEFIBRILLATOR/ Pacer. Asthma, ADD, environmental allergies. - Social History Smoking Status: Never smoked Constitutional: Initial Vital Signs Temperature (C) 36.8 C 11/20/18 23:09 Heart Rate 111 H 11/20/18 23:09 Respiratory Rate 20 11/20/18 23:09 Blood Pressure 138/119 H 11/20/18 23:09 O2 Sat (%) 100 11/20/18 23:09 O2 Delivery Mode Nasal Cannula O2 (L/minute) 2 Allergies/Adverse Reactions: Penicillins Allergy (Unknown, Verified 11/20/18 23:08) Anaphylaxis Home Medications: Medication Instructions Recorded Albuterol [Proventil Inhaler HFA 1 - 2 puffs IH Q4H PRN mdi 07/21/18 (*)] Carvedilol [Coreg (*)] 25 mg PO BIDMEAL #120 tab 07/21/18 Digoxin [Lanoxin 125 mcg (RX)] 125 mcg PO HS tab 07/21/18 Enalapril Maleate [Vasotec 10 MG 10 mg PO DAILY tab 07/21/18 (*)] Fluticasone/Salmeter 250/50Mcg 1 puffs IH BID PRN disk 07/21/18 [Advair 250/50 (*)] Furosemide [Lasix 40 MG (*)] 40 mg PO DAILY PRN tab 07/21/18 Gabapentin [Neurontin 100 MG (*)] 100 mg PO HS PRN cap 07/21/18 buPROPion SR [Wellbutrin 150mg SR 150 mg PO TID tab 07/21/18 (*)] Medical Decision Making - Diagnostics Imaging Results: Imaging Impressions Chest X-Ray 11/20/18 23:14 Impression: Stable chest. ED Course/Re-evaluation: 53-year-old woman with chest pain which has been present constantly for the last 10 hr. Troponins negative. D-dimer is negative. ECG shows nothing acute. Pain relieved with Pepcid. Symptoms consistent with GERD. No evidence of acute coronary syndrome. She has had a normal clean catheterization within the last 18 months. She is improved here. Plan will be for discharge with follow-up with primary care physician as an outpatient, return for worsening. - Data Points Laboratory Results: Laboratory Results 11/20/18 23:23 11/20/18 23:23 11/20/18 11/20/18 11/20/18 23:23 23:23 23:23 WBC 13.51 10^3/uL H 10^3/uL (3.80-9.50) RBC 5.42 10^6/uL H 10^6/uL (4.18-5.33) Hgb 9.6 g/dL L g/dL (12.6-16.3) Hct 34.3 % L % (38.0-47.0) MCV 63.3 fL L fL (81.5-99.8) MCH 17.7 pg L pg (27.9-34.1) MCHC 28.0 g/dL L g/dL (32.4-36.7) RDW 19.7 % H % (11.5-15.2) Plt Count 631 10^3/uL H 10^3/uL (150-400) MPV 9.1 fL fL (8.7-11.7) Neut % (Auto) 71.1 % % (39.3-74.2) Lymph % (Auto) 18.1 % % (15.0-45.0) [place] % (Auto) 6.3 % % (4.5-13.0) Eos % (Auto) 3.2 % % (0.6-7.6) Baso % (Auto) 0.9 % % (0.3-1.7) Nucleat RBC Rel Count 0.0 % % (0.0-0.2) Absolute Neuts (auto) 9.61 10^3/uL H 10^3/uL (1.70-6.50) Absolute Lymphs (auto) 2.45 10^3/uL 10^3/uL (1.00-3.00) Absolute Monos (auto) 0.85 10^3/uL H 10^3/uL (0.30-0.80) Absolute Eos (auto) 0.43 10^3/uL H 10^3/uL (0.03-0.40) Absolute Basos (auto) 0.12 10^3/uL H 10^3/uL (0.02-0.10) Absolute Nucleated RBC 0.00 10^3/uL 10^3/uL (0-0.01) Immature Gran % 0.4 % % (0.0-1.1) Immature Gran # 0.05 10^3/uL 10^3/uL (0.00-0.10) Platelet Estimate INCREASED H (ADEQ) Polychromasia 2+ H Hypochromasia 2+ H Microcytic Cells 2+ H Tear Drop Cells 1+ H Acanthocytes (Spur) 1+ H Keratocytes 1+ H Schistocytes 1+ H Smear Review By Pending D-Dimer 0.29 ug/mLFEU ug/mLFEU (0.00-0.50) Sodium 137 mEq/L mEq/L (135-145) Potassium 3.4 mEq/L L mEq/L (3.5-5.2) Chloride 101 mEq/L mEq/L (97-110) Carbon Dioxide 22 mEq/l mEq/l (22-31) Anion Gap 14 mEq/L mEq/L (6-14) BUN 24 mg/dL H mg/dL (7-23) Creatinine 1.6 mg/dL H mg/dL (0.6-1.0) Estimated GFR 33 Glucose 119 mg/dL H mg/dL (70-100) Calcium 10.1 mg/dL mg/dL (8.5-10.4) POC Troponin I 11/20/18 23:20 WBC RBC Hgb Hct MCV MCH MCHC RDW Plt Count MPV Neut % (Auto) Lymph % (Auto) [place] % (Auto) Eos % (Auto) Baso % (Auto) Nucleat RBC Rel Count Absolute Neuts (auto) Absolute Lymphs (auto) Absolute Monos (auto) Absolute Eos (auto) Absolute Basos (auto) Absolute Nucleated RBC Immature Gran % Immature Gran # Platelet Estimate Polychromasia Hypochromasia Microcytic Cells Tear Drop Cells Acanthocytes (Spur) Keratocytes Schistocytes Smear Review By D-Dimer Sodium Potassium Chloride Carbon Dioxide Anion Gap BUN Creatinine Estimated GFR Glucose Calcium POC Troponin I 0.02 ng/mL ng/mL (0.00-0.08) Medications Given: Discontinued Medications Sodium Chloride (Ns) 1,000 mls @ 0 mls/hr IV ONCE ONE; Wide Open PRN Reason: Protocol Stop: 11/20/18 23:15 Last Admin: 11/20/18 23:23 Dose: 1,000 mls Famotidine/Sodium Chloride (Pepcid 20 Mg (Premix)) 50 mls @ 200 mls/hr IV EDNOW ONE Stop: 11/20/18 23:29 Last Admin: 11/20/18 23:20 Dose: 50 mls Morphine Sulfate (Morphine) 4 mg IVP ONCE ONE Stop: 11/20/18 23:15 Last Admin: 11/20/18 23:23 Dose: 4 mg Point of Care Test Results: Chemistry 11/20/18 23:20 POC Troponin I 0.02 ng/mL ng/mL (0.00-0.08) Departure - Departure Disposition: Home, Routine, Self-Care Clinical Impression: GERD (gastroesophageal reflux disease) Condition: Good Instructions: Gastroesophageal Reflux Disease (ED) Additional Instructions: You may take famotidine available [id number] if her symptoms return. Follow up with primary care physician in 3-4 days for further evaluation. Return to the emergency department for increasing chest pain, shortness of breath, uncontrolled nausea vomiting, fevers, chills, or any other concerns. Referrals: Mari Adrian MD [Primary Care Provider] - As per Instructions
[2018-11-20 23:33] LABS: PLATELET COUNT 631 10^3/uL (150-400)
[2018-11-21 01:06] VITALS: BP 200/103
--- NOTE | 2018-11-21 06:15 | CPEKG ---
Test Reason : OPEN Blood Pressure : / mmHG Vent. Rate : 107 BPM Atrial Rate : 107 BPM P-R Int : 126 ms QRS Dur : 101 ms QT Int : 373 ms P-R-T Axes : 063 019 063 degrees QTc Int : 498 ms Sinus tachycardia Ventricular premature complex Nonspecific repol abnormality, diffuse leads Confirmed by Joaquim Guerrero ([id number] on 11/21/2018 6:14:47 AM Referred By: Confirmed By:Joaquim Guerrero
== END 2018-11-21 01:17 | disposition home or self-care (01) ==
DX: K21.9 Gastro-esophageal reflux disease without esophagitis (principal); O90.3 Peripartum cardiomyopathy; I47.2 Ventricular tachycardia; I10 Essential (primary) hypertension; E86.9 Volume depletion, unspecified; Z95.810 Presence of automatic (implantable) cardiac defibrillator; Z88.0 Allergy status to penicillin
CPT/HCPCS: 71046; 93005; 96365; 96375; 99285; J2270; 84484-ER

== ENCOUNTER 2018-11-22 00:12 | Emergency (ER) | payer OTHER ==
[2018-11-22] MEDS ORDERED: ONDANSETRON 4 MG/2 ML VIAL IVP ONE (00:35)
--- NOTE | 2018-11-22 00:35 | EDPHY ---
H & P Stated Complaint: vomiting for one day Time Seen by Provider: 11/22/18 00:34 HPI/ROS: HPI CHIEF COMPLAINT: Vomiting HISTORY OF PRESENT ILLNESS: A 53-year-old female, very pleasant, was here recently on the 20 of November in the emergency room for reflux. She states in terms of reflux chest pain she is doing much better she has no chest pain or shortness of breath. She took Pepcid and this made a great improvement however she reports she received morphine the emergency room the other night and ever since then has had nausea vomiting. She states she has been vomiting all day since 7:00 a.m. Yesterday morning. Nonbloody. No bile. Denies any diarrhea, denies chest pain, denies shortness of breath. Denies any abdominal pain. Past Medical History: Cardiomyopathy, hypertension, EGD Past Surgical History: AICD left chest Social History: Denies drugs alcohol tobacco. Family History: Noncontributory ROS REVIEW OF SYSTEMS: 10 Systems were reviewed and negative with the exception of the elements mentioned in the history of present illness. Exam Constitutional nontoxic in no acute distress triage nursing summary reviewed, vital signs reviewed, awake/alert. Vital signs stable Eyes normal conjunctivae and sclera, EOMI, PERRLA. HENT normal inspection, atraumatic, moist mucus membranes, no epistaxis, neck supple/ no meningismus, no raccoon eyes. Respiratory clear to auscultation bilaterally, normal breath sounds, no respiratory distress, no wheezing. Cardiovascular rate normal, regular rhythm, no murmur, no edema, distal pulses normal. Gastrointestinal soft, non-tender, no rebound, no guarding, normal bowel sounds, no distension, no pulsatile mass. Genitourinary no CVA tenderness. Musculoskeletal no midline vertebral tenderness, full range of motion, no calf swelling, no tenderness of extremities, no meningismus, good pulses, neurovascularly intact. Skin pink, warm, & dry, no rash, skin atraumatic. Neurologic awake, alert and oriented x 3, AAOx3, moves all 4 extremities equally, motor intact, sensory intact, CN II-XII intact, normal cerebellar, normal vision, normal speech. Psychiatric normal mood/affect. Heme/Lymph/Immune no lymphadenopathy. Differential Diagnosis: Differential diagnosis includes but is not limited to and in no particular order: Bowel obstruction, appendicitis, gallbladder disease, diverticulitis, colitis, enteritis, perforated viscus, gastritis, GERD , esophagitis, urinary tract infection, pyelonephritis, kidney stones Medical Decision Making: Plan for this patient IV establishment IV fluid bolus 2 L normal saline, IV Zofran for nausea, basic blood work, electrolytes and re- evaluate. Re-evaluation: 0243: Patient at this time asking to eat and drink. She is requesting discharge home. She denies any chest pain shortness of breath or any abdominal pain. She no longer is nauseous. She received fluids here IV x2 L, Zofran for nausea and has done very well. Patient now eating and drinking and eating Bryce crackers. Patient requesting discharge home. Return precautions discussed with patient return if worsening vomiting abdominal pain or any complaints. She is comfortable this plan. Source: Patient - Personal History Current Tetanus/Diphtheria Vaccine: Yes Current Tetanus Diphtheria and Acellular Pertussis (TDAP): Yes Tetanus Vaccine Date: 2012 - Medical/Surgical History Hx Asthma: Yes Hx Chronic Respiratory Disease: No Hx Diabetes: No Hx Cardiac Disease: Yes Hx Renal Disease: No Hx Cirrhosis: No Hx Alcoholism: No Hx HIV/AIDS: No Hx Splenectomy or Spleen Trauma: No Other PMH: DEPRESSION, CARDIAC (post maternal myopathy)ISSUES, DEFIBRILLATOR/ Pacer. Asthma, ADD, environmental allergies. - Social History Smoking Status: Never smoked Constitutional: Initial Vital Signs Temperature (C) 36.8 C 11/22/18 00:13 Heart Rate 89 11/22/18 00:13 Respiratory Rate 16 11/22/18 00:13 Blood Pressure 166/92 H 11/22/18 00:13 O2 Sat (%) 94 11/22/18 00:13 O2 Delivery Mode Room Air Allergies/Adverse Reactions: Penicillins Allergy (Unknown, Verified 11/22/18 00:19) Anaphylaxis Home Medications: Medication Instructions Recorded Albuterol [Proventil Inhaler HFA 1 - 2 puffs IH Q4H PRN mdi 07/21/18 (*)] Carvedilol [Coreg (*)] 25 mg PO BIDMEAL #120 tab 07/21/18 Digoxin [Lanoxin 125 mcg (RX)] 125 mcg PO HS tab 07/21/18 Enalapril Maleate [Vasotec 10 MG 10 mg PO DAILY tab 07/21/18 (*)] Fluticasone/Salmeter 250/50Mcg 1 puffs IH BID PRN disk 07/21/18 [Advair 250/50 (*)] Furosemide [Lasix 40 MG (*)] 40 mg PO DAILY PRN tab 07/21/18 Gabapentin [Neurontin 100 MG (*)] 100 mg PO HS PRN cap 07/21/18 buPROPion SR [Wellbutrin 150mg SR 150 mg PO TID tab 07/21/18 (*)] Medical Decision Making - Data Points Laboratory Results: Laboratory Results 11/22/18 00:50 11/22/18 00:50 11/22/18 11/22/18 11/22/18 00:52 00:50 00:50 WBC 10.57 10^3/uL H 10^3/uL (3.80-9.50) RBC 5.10 10^6/uL 10^6/uL (4.18-5.33) Hgb 8.9 g/dL L g/dL (12.6-16.3) Hct 32.4 % L % (38.0-47.0) MCV 63.5 fL L fL (81.5-99.8) MCH 17.5 pg L pg (27.9-34.1) MCHC 27.5 g/dL L g/dL (32.4-36.7) RDW 19.1 % H % (11.5-15.2) Plt Count 537 10^3/uL H 10^3/uL (150-400) MPV 9.0 fL fL (8.7-11.7) Neut % (Auto) 66.5 % % (39.3-74.2) Lymph % (Auto) 21.3 % % (15.0-45.0) [place] % (Auto) 6.6 % % (4.5-13.0) Eos % (Auto) 3.9 % % (0.6-7.6) Baso % (Auto) 1.3 % % (0.3-1.7) Nucleat RBC Rel Count 0.0 % % (0.0-0.2) Absolute Neuts (auto) 7.03 10^3/uL H 10^3/uL (1.70-6.50) Absolute Lymphs (auto) 2.25 10^3/uL 10^3/uL (1.00-3.00) Absolute Monos (auto) 0.70 10^3/uL 10^3/uL (0.30-0.80) Absolute Eos (auto) 0.41 10^3/uL H 10^3/uL (0.03-0.40) Absolute Basos (auto) 0.14 10^3/uL H 10^3/uL (0.02-0.10) Absolute Nucleated RBC 0.00 10^3/uL 10^3/uL (0-0.01) Immature Gran % 0.4 % % (0.0-1.1) Immature Gran # 0.04 10^3/uL 10^3/uL (0.00-0.10) Platelet Estimate INCREASED H (ADEQ) Polychromasia 1+ H Hypochromasia 2+ H Microcytic Cells 2+ H Tear Drop Cells 1+ H Elliptocytes 1+ H Acanthocytes (Spur) 1+ H Schistocytes 1+ H Smear Review By Pending Sodium 139 mEq/L mEq/L (135-145) Potassium 3.7 mEq/L mEq/L (3.5-5.2) Chloride 106 mEq/L mEq/L (97-110) Carbon Dioxide 24 mEq/l mEq/l (22-31) Anion Gap 9 mEq/L mEq/L (6-14) BUN 23 mg/dL mg/dL (7-23) Creatinine 1.2 mg/dL H mg/dL (0.6-1.0) Estimated GFR 47 Glucose 101 mg/dL H mg/dL (70-100) Calcium 9.8 mg/dL mg/dL (8.5-10.4) Total Bilirubin 0.2 mg/dL mg/dL (0.1-1.4) Conjugated Bilirubin 0.2 mg/dL mg/dL (0.0-0.5) Unconjugated Bilirubin 0.0 mg/dL mg/dL (0.0-1.1) AST 25 IU/L IU/L (14-46) ALT 25 IU/L IU/L (9-52) Alkaline Phosphatase 120 IU/L IU/L (38-126) POC Troponin I 0.00 ng/mL ng/mL (0.00-0.08) Total Protein 7.5 g/dL g/dL (6.3-8.2) Albumin 4.0 g/dL g/dL (3.5-5.0) Lipase 140 IU/L IU/L (23-300) Medications Given: Discontinued Medications Sodium Chloride (Ns) 1,000 mls @ 0 mls/hr IV EDNOW ONE; Wide Open PRN Reason: Protocol Stop: 11/22/18 00:36 Last Admin: 11/22/18 01:00 Dose: 1,000 mls Sodium Chloride (Ns) 1,000 mls @ 0 mls/hr IV ONCE ONE PRN Reason: Wide Open Stop: 11/22/18 00:39 Last Admin: 11/22/18 01:03 Dose: 1,000 mls Ondansetron HCl (Zofran) 4 mg IVP EDNOW ONE Stop: 11/22/18 00:36 Last Admin: 11/22/18 00:59 Dose: 4 mg Point of Care Test Results: Chemistry 11/22/18 00:52 POC Troponin I 0.00 ng/mL ng/mL (0.00-0.08) Departure - Departure Disposition: Home, Routine, Self-Care Clinical Impression: Vomiting Qualifiers: Vomiting type: unspecified Vomiting Intractability: non-intractable Nausea presence: with nausea Qualified Code(s): R11.2 - Nausea with vomiting, unspecified Condition: Good Instructions: Dehydration (ED), Acute Nausea and Vomiting (ED) Referrals: Mari Adrian MD [Primary Care Provider] - As per Instructions
[2018-11-22] MEDS ORDERED: NS 1,000 ML IV ONE (00:38)
[2018-11-22] MEDS: NS 1,000 ML IV ONE ×2 (00:59→01:00)
[2018-11-22 01:15] LABS: PLATELET COUNT 537 10^3/uL (150-400)
[2018-11-22 02:46] VITALS: BP 173/99
== END 2018-11-22 02:50 | disposition home or self-care (01) ==
DX: R11.2 Nausea with vomiting, unspecified (principal); E86.0 Dehydration; I10 Essential (primary) hypertension
CPT/HCPCS: 96361; 96374; 99284; J2405; 84484-ER

== ENCOUNTER 2018-12-03 07:49 | Emergency (ER) | payer OTHER ==
[2018-12-03 07:58] VITALS: BP 204/102
--- NOTE | 2018-12-03 08:06 | EDPHY ---
H & P Time Seen by Provider: 12/03/18 07:58 HPI/ROS: CHIEF COMPLAINT: Left-sided toothache HISTORY OF PRESENT ILLNESS: Patient had root canal on Thursday by a Dr. Manuel in [place]. Because of a penicillin allergy she was given azithromycin and was also on a prednisone taper since Thursday. She presents today with continued left-sided jaw and dental pain. This is been going on for about 6 months but she says that after the root canal is a little bit better but still very painful. Not better or worse with chewing or opening her mouth. No headache or chest pain. No difficulty breathing or swallowing. REVIEW OF SYSTEMS: No fever or chills on direct questioning. Chronic swallowing trouble scheduled for gastroenterology scope in the near future. PAST MEDICAL HISTORY: Includes AICD, asthma, depression, cardiomyopathy Social history: Nonsmoker General Appearance: Alert and conversant, cooperative. The tooth #21 is slightly tender to palpation with temporary filling. A no visible gum swelling, no trismus. Remainder of pharyngeal exam is normal. No pharyngeal erythema or exudate. Normal tympanic membranes. No stridor or drooling. Jaw and neck without tenderness or swelling. Skin on the cheek and face is normal. Emergency Department course/MDM: Patient states she has pain medication. PDMP queried, last RX for hydrocodone #20 on 11/29. She is requesting liquid antibiotic because of her chronic swallowing issue. Clindamycin solution discussed and consented. Does not appear likely to have deep space ENT infection at this time, does not look septic or toxic. Hypertension likely partially due to pain. Smoking Status: Never smoked Constitutional: Initial Vital Signs Temperature (C) 36.8 C 12/03/18 07:56 Heart Rate 98 12/03/18 07:56 Respiratory Rate 18 12/03/18 07:56 Blood Pressure 204/102 H 12/03/18 07:56 O2 Sat (%) 99 12/03/18 07:56 O2 Delivery Mode Room Air Allergies/Adverse Reactions: Penicillins Allergy (Unknown, Verified 12/03/18 07:54) Anaphylaxis Home Medications: Medication Instructions Recorded Albuterol [Proventil Inhaler HFA 1 - 2 puffs IH Q4H PRN mdi 07/21/18 (*)] Carvedilol [Coreg (*)] 25 mg PO BIDMEAL #120 tab 07/21/18 Digoxin [Lanoxin 125 mcg (RX)] 125 mcg PO HS tab 07/21/18 Enalapril Maleate [Vasotec 10 MG 10 mg PO DAILY tab 07/21/18 (*)] Fluticasone/Salmeter 250/50Mcg 1 puffs IH BID PRN disk 07/21/18 [Advair 250/50 (*)] Furosemide [Lasix 40 MG (*)] 40 mg PO DAILY PRN tab 07/21/18 Gabapentin [Neurontin 100 MG (*)] 100 mg PO HS PRN cap 07/21/18 buPROPion SR [Wellbutrin 150mg SR 150 mg PO TID tab 07/21/18 (*)] Clindamycin [Cleocin Oral Liquid] 300 mg PO TID 7 Days bottle 12/03/18 MDM/Departure - Depart Disposition: Home, Routine, Self-Care Clinical Impression: Toothache Condition: Good Instructions: Toothache (ED) Additional Instructions: Continue with Motrin 600 mg by mouth every 8 hr as needed for only the next 3-4 days. Hydrocodone at night as needed for worsening pain. Please follow-up with your dentist on Thursday as scheduled. Prescriptions: Clindamycin [Cleocin Oral Liquid] 300 mg PO TID 7 Days bottle Referrals: Mari Adrian MD [Primary Care Provider] - As per Instructions
== END 2018-12-03 08:16 | disposition home or self-care (01) ==
DX: K08.89 Other specified disorders of teeth and supporting structures (principal); F32.9 Major depressive disorder, single episode, unspecified; J45.909 Unspecified asthma, uncomplicated; I42.9 Cardiomyopathy, unspecified; Z88.0 Allergy status to penicillin; Z95.810 Presence of automatic (implantable) cardiac defibrillator

== ENCOUNTER 2018-12-05 20:41 | Emergency (ER) | payer OTHER ==
[2018-12-05] MEDS ORDERED: NS 1,000 ML IV ONE (21:18)
--- NOTE | 2018-12-05 21:21 | EDPHY ---
H & P Time Seen by Provider: 12/05/18 20:59 HPI/ROS: CHIEF COMPLAINT: Fatigue, decreased appetite, recent dental procedure HISTORY OF PRESENT ILLNESS: 53-year-old female presents to the emergency department by private vehicle complaining of fatigue and decreased appetite. The patient had a root canal on Thursday, 6 days ago. She had some left-sided facial swelling as a result of the procedure which is improved a bit but since Thursday has felt chilled and achy. She has been taking liquid clindamycin since the procedure. She has issues with dysphagia which is currently being worked up by GI and has a scheduled appointment with GI next week for the biopsy. She has not taken her temperature. There has been no vomiting or diarrhea. No abdominal pain. No pain in her chest or difficulty breathing. She thinks that she needs some IV fluids. REVIEW OF SYSTEMS: Constitutional: No fever, no chills. Eyes: No double or blurry vision. ENT: No sore throat. Respiratory: No cough, no shortness of breath. Cardiac: No chest pain. Gastrointestinal: Decreased appetite. No abdominal pain, vomiting or diarrhea. Genitourinary: No dysuria. Musculoskeletal: No neck or back pain. Skin: No rashes. Neurological: No headache. Past Medical/Surgical History: Depression, pacemaker defibrillator, asthma, ADD, environmental allergies Social History: and lives in [place] Smoking Status: Never smoked Physical Exam: General Appearance: Alert, no distress. Afebrile. Eyes: Pupils equal and round. Extraocular motions are all intact. ENT: Mouth: Mucous membranes slightly dry. No gum swelling or anything to suggest abscess. No sublingual swelling. Very minimal left-sided facial swelling noted at the angle of the mandible. No palpable bony tenderness. Respiratory: No wheezing, rhonchi, or rales, lungs are clear to auscultation. Cardiovascular: Regular rate and rhythm. Gastrointestinal: Abdomen is soft and nontender, no masses, no rebound or guarding, bowel sounds normal. Neurological: Alert and oriented x 3, cranial nerves II through XII grossly intact Skin: Warm and dry, no rashes. Musculoskeletal: Nontender to palpate along the cervical, thoracic or lumbar spine. Neck is supple. Extremities: Full range of motion and no peripheral edema. Psychiatric: Patient is oriented X 3, there is no agitation. Constitutional: Initial Vital Signs Temperature (C) 36.9 C 12/05/18 20:45 Heart Rate 105 H 12/05/18 20:45 Respiratory Rate 16 12/05/18 20:45 Blood Pressure 173/93 H 12/05/18 20:45 O2 Sat (%) 100 12/05/18 20:45 O2 Delivery Mode Room Air Allergies/Adverse Reactions: Penicillins Allergy (Unknown, Verified 12/05/18 20:51) Anaphylaxis Home Medications: Medication Instructions Recorded Albuterol [Proventil Inhaler HFA 1 - 2 puffs IH Q4H PRN mdi 07/21/18 (*)] Carvedilol [Coreg (*)] 25 mg PO BIDMEAL #120 tab 07/21/18 Digoxin [Lanoxin 125 mcg (RX)] 125 mcg PO HS tab 07/21/18 Enalapril Maleate [Vasotec 10 MG 10 mg PO DAILY tab 07/21/18 (*)] Fluticasone/Salmeter 250/50Mcg 1 puffs IH BID PRN disk 07/21/18 [Advair 250/50 (*)] Furosemide [Lasix 40 MG (*)] 40 mg PO DAILY PRN tab 07/21/18 Gabapentin [Neurontin 100 MG (*)] 100 mg PO HS PRN cap 07/21/18 buPROPion SR [Wellbutrin 150mg SR 150 mg PO TID tab 07/21/18 (*)] Clindamycin [Cleocin Oral Liquid] 300 mg PO TID 7 Days bottle 12/03/18 Medical Decision Making ED Course/Re-evaluation: 53-year-old female presents to the emergency department with dental pain and possible dehydration. The patient was given IV normal saline. She was feeling better. She was drinking some juice and ate some crackers. She feels like she can go home. [place] [id number] with signs of anemia. I encouraged her to have a repeat complete blood cell count and recheck by her primary care provider. I encouraged her to follow up with primary care provider this week. Keep her scheduled appointment with her clay washer. She should return sooner if she develops facial swelling, fever, increasing pain, or any other concerns. She was comfortable with this plan. Differential Diagnosis: Including but not limited to dental abscess, dental caries, sepsis, dehydration - Data Points Laboratory Results: Laboratory Results 12/05/18 21:45 12/05/18 21:45 12/05/18 12/05/18 21:45 21:45 WBC 11.24 10^3/uL H 10^3/uL (3.80-9.50) RBC 5.14 10^6/uL 10^6/uL (4.18-5.33) Hgb 9.1 g/dL L g/dL (12.6-16.3) Hct 33.0 % L % (38.0-47.0) MCV 64.2 fL L fL (81.5-99.8) MCH 17.7 pg L pg (27.9-34.1) MCHC 27.6 g/dL L g/dL (32.4-36.7) RDW 19.6 % H % (11.5-15.2) Plt Count 504 10^3/uL H 10^3/uL (150-400) MPV 8.5 fL L fL (8.7-11.7) Neut % (Auto) 67.2 % % (39.3-74.2) Lymph % (Auto) 22.2 % % (15.0-45.0) [place] % (Auto) 6.3 % % (4.5-13.0) Eos % (Auto) 3.3 % % (0.6-7.6) Baso % (Auto) 0.7 % % (0.3-1.7) Nucleat RBC Rel Count 0.0 % % (0.0-0.2) Absolute Neuts (auto) 7.56 10^3/uL H 10^3/uL (1.70-6.50) Absolute Lymphs (auto) 2.49 10^3/uL 10^3/uL (1.00-3.00) Absolute Monos (auto) 0.71 10^3/uL 10^3/uL (0.30-0.80) Absolute Eos (auto) 0.37 10^3/uL 10^3/uL (0.03-0.40) Absolute Basos (auto) 0.08 10^3/uL 10^3/uL (0.02-0.10) Absolute Nucleated RBC 0.00 10^3/uL 10^3/uL (0-0.01) Immature Gran % 0.3 % % (0.0-1.1) Immature Gran # 0.03 10^3/uL 10^3/uL (0.00-0.10) Platelet Estimate INCREASED H (ADEQ) Hypochromasia 2+ H Microcytic Cells 3+ H Smear Review By Pending Sodium 140 mEq/L mEq/L (135-145) Potassium 4.2 mEq/L mEq/L (3.5-5.2) Chloride 110 mEq/L mEq/L (97-110) Carbon Dioxide 23 mEq/l mEq/l (22-31) Anion Gap 7 mEq/L mEq/L (6-14) BUN 19 mg/dL mg/dL (7-23) Creatinine 0.9 mg/dL mg/dL (0.6-1.0) Estimated GFR > 60 Glucose 91 mg/dL mg/dL (70-100) Calcium 10.1 mg/dL mg/dL (8.5-10.4) Medications Given: Discontinued Medications Sodium Chloride (Ns) 1,000 mls @ 0 mls/hr IV ONCE ONE PRN Reason: Wide Open Stop: 12/05/18 21:19 Last Admin: 12/05/18 21:26 Dose: 1,000 mls Departure - Departure Disposition: Home, Routine, Self-Care Clinical Impression: Dehydration, Pain, dental Condition: Good Instructions: Dehydration (ED), Toothache (ED) Additional Instructions: Follow-up with her primary care provider this week to recheck. You should have a repeat complete blood cell count with your primary care provider in the next few weeks. He should return to the emergency department if you developed facial swelling, fever, or if you feel worse in any way. Referrals: Mari Adrian MD [Primary Care Provider] - 1-2 days without fail
[2018-12-05 21:59] LABS: PLATELET COUNT 504 10^3/uL (150-400)
[2018-12-06 00:11] VITALS: BP 132/102
== END 2018-12-06 00:34 | disposition home or self-care (01) ==
DX: K08.89 Other specified disorders of teeth and supporting structures (principal); E86.0 Dehydration

== ENCOUNTER → 2019-03-07 | Outpatient (CLI) | payer OTHER | PROVIDERS: ATTEND Otolaryngology | DX: R13.10 Dysphagia, unspecified (principal) | CPT/HCPCS: 92611-GN ==